=== PATIENT | female | born 1960 | race Caucasian/White ===

== ENCOUNTER → 2018-08-17 14:42 | Outpatient (CLI) | payer OTHER, SELFPAY ==
[2018-08-17 18:15] LABS: Free T3 3.2 pg/mL (2.18-3.98); Thyroid Stim Hormone (TSH) 0.45 uIU/mL (0.358-3.74)
== END ==
PROVIDERS: Family Provider Family Medicine; PCP Family Medicine; Visit Provider Family Medicine
DX: E03.9 Hypothyroidism, unspecified (principal)
CPT/HCPCS: 36415; 84436; 84443; 84481

== ENCOUNTER 2019-02-11 12:30 | Observation (INO) | payer OTHER, SELFPAY ==
[2018-11-25 15:03] VITALS: BMI 27.1
--- NOTE | 2019-02-05 06:30 | EKG12_ITS ---
Test Reason : PRE OP Blood Pressure : / mmHG Vent. Rate : 074 BPM Atrial Rate : 074 BPM P-R Int : 146 ms QRS Dur : 098 ms QT Int : 436 ms P-R-T Axes : 066 059 -20 degrees QTc Int : 483 ms Normal sinus rhythm Possible Left atrial enlargement Left ventricular hypertrophy with repolarization abnormality Prolonged QT Abnormal ECG Confirmed by GUILHERME SUAREZ, CAITLIN ([id number]), fashion editor LILA ASHER ([id number]) on 02/09/2019 1:39:09 PM Referred By: Khadijah Golden Confirmed By:CAITLIN VANEGAS MD
[2019-02-05 07:40] LABS: Hematocrit 41.5 % (37-47); Hemoglobin 13.4 g/dl (12.0-15.0); Mean Corp Hgb Conc 32.3 g/gl (32-36); Mean Corpuscular Hgb 29.7 pg (27.0-32.0); Mean Platelet Vol. 11.7 fl (6.2-12.0); Platelet Count 197 K/mm3 (150-450); RBC Distribution Width CV 12.7 % (11.6-14.6); RBC Distribution Width SD 41.6 fl (35.1-43.9); Red Blood Count 4.51 M/mm3 (4.2-5.4); White Blood Count 5.1 K/mm3 (4.4-11.0)
[2019-02-05 07:41] LABS: Scan Indicated on CBC? Y/N NO
[2019-02-05 08:04] LABS: Anion Gap 7 (5-15); BUN 9 mg/dL (7-18); Calcium,Total 9.1 mg/dL (8.5-10.1); Chloride 107 mmol/L (98-107); Creatinine, Serum 0.75 mg/dL (0.55-1.02); EST Glomerular Filtration Rate 84 mL/min (>60); Est Glom Filt Rate - Afr Amer 102 mL/min (>60); Glucose 75 mg/dL (74-106); Potassium 3.7 mmol/L (3.5-5.1); Sodium Level 143 mmol/L (136-145); Thyroid Stim Hormone (TSH) 0.96 uIU/mL (0.358-3.74)
--- NOTE | 2019-02-08 09:43 | PCM.HPOB.BLA ---
- Problem List (1) Incomplete uterovaginal prolapse Status: Chronic Comment: plan TVH BS combo case with urogyn. higgins consult History and Physical Date of Admission: 02/11/19 Vital Signs 01/20/19 Height 5 ft 7 in 01/20/19 Weight: 173 lb 8 oz 01/20/19 Body Mass Index (BMI) 27.1 01/20/19 Blood Pressure 124/76 H Intake Visit Reasons: TVH BS/O? ERAS Chief Complaint: TVH BS/O? ERAS Tier And Detonator Required: No Is patient in pain?: No Allergies penicillin G Allergy (Mild, Verified 11/25/18 15:05) Other Medications liothyronine 25 mcg tablet 25 mcg PO DAILY 11/25/18 [History Confirmed 11/25/18] multivitamin,gg-ufyb-cideqvnt tablet 1 tab PO DAILY 11/25/18 [History Confirmed 11/25/18] Is last menstrual period known: No Post menopausal: Yes Patient : No : No [facility] Medical History Thyroid disorder (Acute) Surgical History History of endometrial ablation (Acute) History of tonsillectomy (Acute) Hx of foot surgery (Acute) Social History Smoking Status: Never smoker alcohol intake: current details: social substance use type: does not use caffeine: Yes what type of physical activity do you participate in: walking seatbelt use: always do you feel safe at home: Yes additional social history: Xu LOVE TVH BS/O? ERAS: Details: ALINA LOPEZ is a 58 year old who presents for preop appointment.she is having prolapse symptoms. Female Reproductive History Menopausal Symptoms: No night sweats Pregancy History 4 Elective abortions Hx Para 3 Spontaneous abortions Hx # Term Pregnancies Ectopic pregnancies Hx # Pregnancies Multiple births # of living children Past Pregnancies Del. Date Name GA/Weeks Outcome Route Bth Weight Gen Labor Lgth Anesthesia Del Locatn Provider FOB Unknown 1985 Ana M Unknown 1987 Tre Unknown 1990 Jose Gracia Constitutional: Denies fatigue, night sweats, weight gain or weight loss ENT ENT: Reports system reviewed and no additional complaints, except as docu Cardio Card: Denies chest pain Resp Resp: Denies cough or dyspnea GI GI: Reports as per HPI; denies abdominal pain, constipation, nausea or vomiting : Denies nipple discharge, urinary frequency, urinary incontinence, urinary hesitancy, urinary urgency, vaginal discharge, vaginal dryness, vaginal odor or vaginal itching Musc Musc: Denies joint pain, back pain or muscle weakness Skin Skin/Breast: Denies hair loss, change in hair, dry skin, breast lump, breast pain, breast skin changes or nipple discharge Neuro Neuro: Reports system reviewed and no additional complaints, except as docu Psych Psych: Reports system reviewed and no additional complaints, except as docu Endo Endo: Denies cold intolerance, excessive sweating, heat intolerance or increased thirst Dimas/Lymph Hematologic/Lymphatic: Denies easy bleeding, Denies easy bruising, Denies enlarged lymph nodes Exam Const General: cooperative, healthy appearing, comfortable, no acute distress, well developed Orientation: alert [facility] Head: normal to inspection, normocephalic Ears: hearing grossly normal bilaterally, external ears normal Nose: external nose normal, nares normal Face and sinus: normal facial exam Neck Neck: normal visual inspection, no lymphadenopathy Thyroid: thyroid normal Chest Chest palpation & inspection: normal inspection of the chest Resp Effort & Inspection: normal respiratory effort Cardio Rate: regular rate Rhythm: regular rhythm GI Inspection: normal to inspection, non-distended Palpation: soft, no hepatosplenomegaly Musc Other: gross motor intact no deficits, full bilateral strength Skin General: no rashes or lesions noted Neuro General: alert, awake, moves all extremities, no focal motor deficits Motor: muscle tone normal throughout Extrem General: normal to inspection, no pedal edema Psych Appearance: grossly normal Mental Status: mental status grossly normal Affect: normal affect Speech and Movement: speech and movement normal Assessment & Plan Problems 1. Incomplete uterovaginal prolapse N81.2 plan TVH BS combo case with urogyn. higgins consult Plan plan TVH BS. discussed surgical risks including risks of anesthesia, infection, bleeding, injury to bowel, bladder or blood vessels, and patient wishes to proceed with surgery. Coding Level of Care Code No Charge Diagnoses Incomplete uterovaginal prolapse N81.2 UPDATE- I have seen the patient and performed any clinically relevant updates to the history and physical exam. Khadijah Golden MD
[2019-02-10 13:01] VITALS: BMI 26.3
[2019-02-11] VITALS (19 sets, daily range): BP systolic 90–132; BP diastolic 43–73; PULSE 55–73; RESP 14–18; TEMP 36.3–37; O2SAT 93–100; BMI 25.9
[2019-02-11] MEDS: Celecoxib 200 MG Capsule 400 MG PO (06:14)
[2019-02-11] MEDS: Phenazopyridine 95 MG Tablet 190 MG PO (06:15)
[2019-02-11] MEDS: Enoxaparin 40 MG/0.4 ML Syringe SC (06:18)
[2019-02-11] MEDS: Lactated Ringers 1,000 ML 40 ML IV (06:38)
[2019-02-11 06:40] LABS: Bedside Glucose 78 mg/dL (70-110)
[2019-02-11] MEDS: Magnesium Sulfate 4gm/100mL 4 GM/100 ML IV.SOLN. IV (06:46)
[2019-02-11] MEDS: Ciprofloxacin 400 MG/200 ML BAG 200 MG IV (06:48)
[2019-02-11] MEDS: Gabapentin 600 MG Tablet PO (06:48)
[2019-02-11] MEDS: Scopolamine 1mg/72hr Patch 1 PATCH TRANSDERM. (06:49)
[2019-02-11] MEDS: Acetaminophen 500 MG Tablet 1000 MG PO ×3 (06:49→21:00)
--- NOTE | 2019-02-11 07:30 | HYST_PTH ---
PATIENT: ALINA LOPEZ LOC: MS3 U#:[id number] AGE/SX: 58/F ROOM: MS311 RE02/11/[address]: Dr. Khadijah Golden MD : 1960 BED: 1 DIS: 02/12/2019 SPEC #: [id number] RECD: 02/11/19 10:43 STATUS: VALERIA MACKEY #: [id number] RIANNA: 02/11/19 07:[address]: Khadijah Golden DEPT: SURGICAL PATHOLOGY RECD BY: Armen Pate ENTERED: 02/11/19 11:18 SP TYPE: HYSTERECT OTHR DR: MD Dr. Russell Carvalho MD Tissues: Uterus, NOS Procedures: Surgery Specimen Level V HEADER OPERATION: ERAS, vaginal hysterectomy, bilateral salpingo-oophorectomy PRE-OP DIAGNOSIS: Incomplete uterovaginal prolapse TISSUE SUBMITTED: Uterus, cervix, bilateral fallopian tubes and ovaries MICROSCOPIC DIAGNOSIS Uterus, cervix, bilateral fallopian tubes and ovaries, vaginal hysterectomy and bilateral salpingo-oophorectomy: Cervix - no pathologic diagnosis. Endometrium - focal area of weakly proliferative endometrium. See comment. Myometrium - focal superficial adenomyosis. Bilateral fallopian tubes - no pathologic diagnosis. Bilateral ovaries - mesothelial inclusion cysts. Vaginal mucosal tissue - fragments of squamous mucosa, no pathologic diagnosis. SJ:weston 02/12/19 COMMENT No obvious endometrial tissue is identified. It shows focal fibrosis. As per patient's EMR, the patient has history of endometrial ablation. MICROSCOPIC DESCRIPTION Slides are reviewed. GROSS DESCRIPTION Received in fixative is one container labeled with the patient's name and designated uterus, cervix, bilateral fallopian tubes and ovaries. The specimen consists of a uterus with attached cervix, separate bilateral ovaries, fallopian tubes and separate segments of mucosal tissue. The uterus with attached cervix measures 6 cm in length x 4.1 cm in width x 2.5 cm in AP dimension and weighs 38.1 gm. The serosal surface of the uterus is dumont-pink and smooth. Grossly, no significant adhesion is found. The attached cervix measures 2.5 cm in length x 3.6 cm in diameter. The exocervical mucosa is dumont and smooth. The cervical os is patulous and measures 1.2 cm in diameter. The uterus is opened to reveal a stenotic endocervical canal. Grossly, no obvious endometrial cavity is identified. Sections through the myometrium demonstrate cut surfaces which are dumont-pink and homogenous and measures 1 cm in thickness. The first ovary measures 2.5 x 1.4 x 0.8 cm. The serosal surface is dumont-yellow and slightly wrinkled. Sections through ovary demonstrate a 0.5 cm clear fluid filled subserosal cyst. The attached segment of fallopian tube measures 1.4 cm in length x 0.5 cm in diameter. The serosal surface is dumont-pink and smooth. A fimbriated end is present. Cross-sections demonstrate a pinpoint lumen. The contralateral ovary measures 3 x 1.1 x 0.6 cm. The serosal surface is dumont-yellow and slightly wrinkled. Cross-sections through the ovary demonstrate cut surfaces which are dumont-pink with three minute clear fluid filled cysts. The attached fallopian tube measures 3 cm in length x 0.5 cm in diameter. The serosal surface is dumont-pink and smooth. A fimbriated end is present. Cross-sections through the fallopian tube demonstrate a pinpoint lumen. Continuous Miner sections are submitted as follows: 1 - anterior cervix, 2 - posterior cervix, 3 & 4 - anterior endomyometrium, 5 & 6 - posterior endomyometrium, 7 - first ovary, 8 - first fallopian tube, 9 - contralateral ovary, 10 - contralateral fallopian tube, 11 - separate fragments of mucosal tissue. / CE:weston 02/11/19 TC:5 CPT: 59538
[2019-02-11] MEDS: Vasopressin 20 UNITS/ML Vial (07:55)
[2019-02-11] MEDS: Estrogens,Conj. 1 Tube 1 DOSE (09:51)
--- NOTE | 2019-02-11 09:57 | OP.PCM_ITS ---
Problem List (1) Incomplete uterovaginal prolapse Status: Chronic Comment: plan TVH BS combo case with urogyn. david consult Report of Operation Date of Procedure: 02/11/19 Pre-Operative Diagnosis: uterine prolapse Post-Operative Diagnosis: same plus bilateral cystic ovaries Surgery/Procedure Performed:: tvhbso Description of Surgical Findings:: cystic bilateral ovaries small normal uterus carbon furnace operator helper: Wendy Kohler carbon furnace operator helper: Lauren David Type of Anesthesia:: General Special Medications: none Specimen's removed: uterus tubes ovaries Drains: campuzano Estimated Blood Loss (mL): 200 Fluids Replaced: crystalloid Description of Procedure: Patient was taken to the operating room and was placed under general anesthesia was prepped and draped in normal sterile fashion in the dorsal lithotomy position. Preoperative antibiotics and SCDs and Campuzano catheter was placed inside the bladder. Weighted speculum was placed in the vagina and the anterior and posterior lip of the cervix was grasped with 2 Hever clamps and circumferentially injected with dilute vasopressin. A circumferential incision was made with a scalpel and the posterior cul-de-sac was entered into sharply and a longneck speculum was placed. The anterior cul-de-sac was also dissected down and entered into sharply and the uterosacral ligaments were clamped cut and suture ligated bilaterally followed by the cardinal ligaments which were Clamped cut and suture ligated bilaterally with 0 Monocryl. The uterus serially descended and progressive bites were taken bilaterally up to the level of the utero-ovarian ligament bilaterally which was clamped transected and double ligated with 0 Monocryl suture and 0 Vicryl free tie. Bilateral fallopian tubes and ovaries were well visualized and noted be within normal limits and they were transected across the base with a Daniel clamp and removed and sutured with 0 Vicryl suture and a free tie of the same. Excellent hemostasis was noted. The vagina was closed with [id number] 0 Vicryl pop offs including the posterior and anterior peritoneum in the reapproximation. Excellent hemostasis was noted. The next portion of the procedure was then started by Dr. David please see her dictation for additional information Grafts/Implants Used: see urogyn note - Complications none
--- NOTE | 2019-02-11 10:06 | PCM.OPRPT ---
Problem List (1) Stress incontinence Status: Acute (2) Cystocele and rectocele with incomplete uterovaginal prolapse Status: Acute Report of Operation Date of Procedure: 02/11/19 Pre-Operative Diagnosis: cystocele, rectocele, incomplete uterovaginal prolapse with stress incontinence. Post-Operative Diagnosis: same Surgery/Procedure Performed:: anterior and posterior repair, right sacrospinous ligament fixation, midurethral sling, cystoscopy Description of Surgical Findings:: no complications, bilateral ureters evaluated with good jet on the right and intubated with whistle tip on the left without obstruction or blood. driver's education instructor: None - Type of Anesthesia:: General Estimated Blood Loss (mL): 25cc Description of Procedure: The patient is a 58-year-old female with incomplete uterovaginal prolapse, cystocele, rectocele and stress incontinence. She presents the office and was evaluated with urodynamics, cystoscopy. Informed consent was obtained. Please see the consent for full details. She was taken to the operating room and placed on the operating room table. Anesthesia monitored the head, neck, airway, IV access and vital signs throughout the case. Once anesthesia was appropriately administered the patient was prepped and draped in usual sterile fashion. She was placed into exaggerated dorsal lithotomy and Trendelenburg position. Dr. Golden proceeded first with a hysterectomy and removal of the ovaries. She close the vaginal cuff and the case was turned over to wi. The anterior vaginal wall was injected submucosally for hydrostatic dissection and hemostatic control. A midline incision was made in both sharp and blunt dissection ensued until the pubocervical fascia was identified bilaterally. This is brought together in interrupted fashion with 2-0 Vicryl in a 2 layer repair. The vaginal mucosa was closed using 2-0 Vicryl in running interlocking fashion. Attention was turned towards the posterior defect. Dissection was performed in the same way as the anterior repair with submucosal injection followed by incision, blunt and sharp dissection. However, the dissection continued until the ischial spine was identified and the sacral spinous ligament was freed from surrounding tissues. The Capio suturing device was used to pass an Ethibond suture through the ligament and through full-thickness posterior vaginal wall at the area of the apex. A free needle was used for this. The rectovaginal fascia was then brought together and 2 layer closure trying to avoid tension on the repair. This was done with interrupted 2-0 Vicryl. Following the repair the vaginal incision was closed with running interlocking 2-0 Vicryl. A perineoplasty was also performed using 2-0 Vicryl and an adequate vaginal introitus was instructed. At this time the mid urethra was injected submucosally, and a midline incision was made, and blunt and sharp dissection was performed on either side of the urethra. The alters mid urethral sling was then placed first on the patient's right side than on the left and was tensioned using the tensioning suture. There was no tension against the urethra with the mesh and it lay in a flat nature. Positioning was performed using a right angle clamp. The midline incision was closed using running interlocking 2-0 Vicryl. At this time a cystourethroscopy was performed after the patient had been given intravenous methylene blue. Blue ureteral jet was seen easily from the patient's right side. The patient did not have much urine output and was dry. On the patient's left side a 5 Moroccan whistle-tip catheter was inserted without difficulty all the way up to 24 cm. There was no obstruction and no blood. Upon removal there was only a few drops of urine that came with the catheter. At this time the Crespo catheter was replaced into the urinary bladder. The vagina was packed using estrogen cream and vaginal packing. She was awakened and taken to the recovery room in good condition. There were no complications during the procedure. Please note that this was dictated using [email or web address] dictation software. It may contain incorrect words, spelling and punctuation that were not noted prior to signing the document. Grafts/Implants Used: Altis midurethral sling - Complications none - Admit VTE Documentation VTE Present on Admission: Yes VTE Mechan Device Prophylaxis: SCD's VTE Pharm Prophylaxis ordered?: Yes
[2019-02-11] MEDS: Ondansetron 4 MG/2 ML Vial IV ×2 (10:10→17:30)
[2019-02-11] MEDS: Ketorolac 30 MG/ML Syringe IV ×2 (11:16→18:25)
[2019-02-11] MEDS: Lactated Ringers 1,000 ML 70 ML IV ×2 (11:45→18:51)
[2019-02-11] MEDS: oxyCODONE 5 MG Tablet PO ×2 (12:57→17:05)
[2019-02-11] MEDS: Smz/Tmp Ds Tablet 1 TABLET PO (17:06)
[2019-02-11] MEDS: 0.9% NaCl Peripheral Flush Adult/Peds IV ×2 (17:31→18:25)
[2019-02-11] MEDS: Docusate Sodium 100 MG Capsule PO (21:01)
[2019-02-12] MEDS: Ketorolac 30 MG/ML Syringe IV ×3 (00:11→12:18)
[2019-02-12 02:07] VITALS: BP 95/52; PULSE 64; RESP 16; TEMP 36.4; O2SAT 98
[2019-02-12] MEDS: Acetaminophen 500 MG Tablet 1000 MG PO ×2 (05:53→12:18)
[2019-02-12 06:39] LABS: Hematocrit 36.2 % (37-47); Hemoglobin 11.7 g/dl (12.0-15.0); Mean Corp Hgb Conc 32.3 g/gl (32-36); Mean Corpuscular Hgb 29.6 pg (27.0-32.0); Mean Corpuscular Volume 91.6 fL (81-99); Mean Platelet Vol. 11.6 fl (6.2-12.0); Platelet Count 173 K/mm3 (150-450); RBC Distribution Width CV 12.7 % (11.6-14.6); RBC Distribution Width SD 41.7 fl (35.1-43.9); Red Blood Count 3.95 M/mm3 (4.2-5.4); White Blood Count 11.6 K/mm3 (4.4-11.0)
[2019-02-12 06:41] LABS: Scan Indicated on CBC? Y/N NO
[2019-02-12 07:33] VITALS: O2SAT 96
[2019-02-12 09:26] VITALS: BP 97/53; PULSE 70; RESP 16; TEMP 36.9; O2SAT 97
[2019-02-12] MEDS: Smz/Tmp Ds Tablet 1 TABLET PO (09:28)
[2019-02-12] MEDS: Docusate Sodium 100 MG Capsule PO (09:28)
[2019-02-12] MEDS: Enoxaparin 40 MG/0.4 ML Syringe SC (09:28)
[2019-02-12] MEDS: Lactated Ringers 1,000 ML 70 ML IV (09:29)
[2019-02-12 12:16] VITALS: BP 101/58; PULSE 65; RESP 18; TEMP 36.8; O2SAT 98
[2019-02-12] MEDS: 0.9% NaCl Peripheral Flush Adult/Peds IV (12:18)
--- NOTE | 2019-02-12 12:54 | PCM.PN.GU ---
Physical Exam Subjective: Up in bed, eating lunch. Still uncomfortable as the campuzano catheter and packing have not yet been removed. Otherwise, no nausea, vomiting. Would like to go home. - Physical Exam Vital Signs Temp 98.3 F 02/12/19 12:16 Pulse 65 02/12/19 12:16 Resp 18 02/12/19 12:16 BP 101/58 L 02/12/19 12:16 Pulse Ox 98 02/12/19 12:16 Intake & Output 02/10/19 02/11/19 02/12/19 23:59 23:59 23:59 Intake Total 3193 / 3193 2246 / 2246 Output Total 550 / 550 4225 / 4225 Balance 2643 / 2643 -1978 / Weight: 75.2 kg Intake: Oral 375 / 375 1400 / 1400 IV fluid/meds 2818 / 2818 846 / 846 IV #3 2500 / 2500 Output: Urine 550 / 550 4225 / 4225 General: Alert, Oriented x3, No apparent distress HEENT: Atraumatic, Normocephalic Oral: Moist Mucosa Neck: Supple, Trachea Midline Lungs: Normal air movement Cardiovascular: Regular rate Abdomen: Soft Rectal: Exam deferred Neurological: Cranial nerves II-XII grossly intact Psych/Mental Status: Normal Affect Laboratory Tests Past 24 Hrs 02/12/19 06:20 WBC 11.6 H RBC 3.95 L Hgb 11.7 L Hct 36.2 L MCV 91.6 MCH 29.6 MCHC 32.3 RDW 12.7 RDW Differential 41.7 Plt Count 173 MPV 11.6 Medical Necessity - Tobacco Use Smoking Status: Never smoker Tobacco Use: Non-smoker Assessment/Plan All Active Problems (Last Reviewed 02/10/19 @ 13:47 by Oswaldo Wilkinson MD) Stress incontinence (Acute) Cystocele and rectocele with incomplete uterovaginal prolapse (Acute) Encounter for pre-operative cardiovascular clearance (Acute) Abnormal EKG (Acute) Post Op Day # 1 await trial of void. home later today.
--- NOTE | 2019-02-12 12:55 | PCM.DC.URO ---
Discharge Diet: No Restrictions Discharge Activity: May Not Drive - no driving for 2 weeks. No lifting over 5 pounds. No exercise or strenuous activity. No sexual intercourse. No tub bathing, ok to shower. No swimming or hot tubs. No vacuuming. Call your doctor if you observe: Fever of 101 or Higher, Inability to urinate, Inability to have a bowel movement, Shortness of breath, Chest pain, Calf discomfort, Uncontrolled pain Additional Dressing/Incision Instructions:: vaginal spotting is expected. Call if there is filling a pad in less than an hour. Call with concerns. Allergies/Adverse Reactions: Allergies Penicillins Allergy (Verified 02/10/19 13:04) Hives gluten Adverse Reaction (Verified 02/10/19 13:04) cramping and stomach upset Medications to take at Discharge liothyronine 25 mcg tablet 25 mcg PO BID 11/25/18 Orders to be completed after discharge: Type & Screen Time Frame: 02/04/19, Facility: [facility], Location: Laboratory 12 Lead EKG [CVS] Time Frame: 02/04/19, Facility: [facility], Location: Cardiovascular Services Basic Metabolic Profile (BMP) Time Frame: 02/04/19, Location: Laboratory CBC-Complete Blood Cnt No Diff Time Frame: 02/04/19, Location: Laboratory Thyroid Stim Hormone (TSH) Time Frame: 02/04/19, Location: Laboratory Primary Care Physician: Russell Rojsa MD [Primary Care Provider] - Test Results: Test results from this visit will be discussed in further detail at your follow-up appointment, if applicable. Please Follow Up With: Lauren David MD When: call for appt. Proposed Discharge Date: 02/12/19
--- NOTE | 2019-02-12 12:58 | DCINST_ITS ---
Discharge Diet: No Restrictions Discharge Activity: May Not Drive - no driving for 2 weeks. No lifting over 5 pounds. No exercise or strenuous activity. No sexual intercourse. No tub bathing, ok to shower. No swimming or hot tubs. No vacuuming. Call your doctor if you observe: Fever of 101 or Higher, Inability to urinate, Inability to have a bowel movement, Shortness of breath, Chest pain, Calf discomfort, Uncontrolled pain Additional Dressing/Incision Instructions:: vaginal spotting is expected. Call if there is filling a pad in less than an hour. Call with concerns. Allergies/Adverse Reactions: Allergies Penicillins Allergy (Verified 02/10/19 13:04) Hives gluten Adverse Reaction (Verified 02/10/19 13:04) cramping and stomach upset Medications to take at Discharge liothyronine 25 mcg tablet 25 mcg PO BID 11/25/18 Orders to be completed after discharge: Type & Screen Time Frame: 02/04/19, Facility: [facility], Location: Laboratory 12 Lead EKG [CVS] Time Frame: 02/04/19, Facility: [facility], Location: Cardiovascular Services Basic Metabolic Profile (BMP) Time Frame: 02/04/19, Location: Laboratory CBC-Complete Blood Cnt No Diff Time Frame: 02/04/19, Location: Laboratory Thyroid Stim Hormone (TSH) Time Frame: 02/04/19, Location: Laboratory Primary Care Physician: Russell Rojas MD [Primary Care Provider] - Test Results: Test results from this visit will be discussed in further detail at your follow- up appointment, if applicable. Please Follow Up With: Lauren David MD When: call for appt. Proposed Discharge Date: 02/12/19
--- NOTE | 2019-02-12 13:19 | PCM.PN.OB ---
Patient Problems: Active and Suspected Problems (Last Reviewed 02/10/19 @ 13:47 by Oswaldo Wilkinson MD) Stress incontinence (Acute) Cystocele and rectocele with incomplete uterovaginal prolapse (Acute) Encounter for pre-operative cardiovascular clearance (Acute) Abnormal EKG (Acute) Subjective: doing well pain controlled tolerating po - Physical Exam General: Alert, Oriented x3 Vital Signs Temp Pulse Resp BP Pulse Ox 98.3 F 65 18 101/58 L 98 02/12/19 12:16 02/12/19 12:16 02/12/19 12:16 02/12/19 12:16 02/12/19 12:16 Oxygen Flow Rate (L/min) 6 Oxygen Delivery Method Room Air Weight: 165 lb 12.602 oz Body Mass Index (BMI) 25.9 Intake and Output for Last 24 Hours 02/10/19 02/11/19 02/12/19 23:59 23:59 23:59 Intake Total 3193 / 3193 2246 / 2246 Output Total 550 / 550 4875 / 4875 Balance 2643 / 2643 -2629 / -2629 Laboratory Tests Past 24 Hrs 02/12/19 06:20 WBC 11.6 H RBC 3.95 L Hgb 11.7 L Hct 36.2 L MCV 91.6 MCH 29.6 MCHC 32.3 RDW 12.7 RDW Differential 41.7 Plt Count 173 MPV 11.6 Medical Necessity - Tobacco Use Smoking Status: Never smoker Tobacco Use: Non-smoker Assessment/Plan All Active Problems (Last Reviewed 02/10/19 @ 13:47 by Oswaldo Wilkinson MD) Stress incontinence (Acute) Cystocele and rectocele with incomplete uterovaginal prolapse (Acute) Encounter for pre-operative cardiovascular clearance (Acute) Abnormal EKG (Acute) s/p TVH pelvic floor reconstruction pod 1 routine postop care ambulate dc campuzano and check PVR dc home
[2019-02-12 14:00] VITALS: BP 94/50; PULSE 65; RESP 16; TEMP 36.8; O2SAT 99
== END 2019-02-12 16:19 | disposition home or self-care (01) ==
LOC: SDC 13:51
PROVIDERS: Urology; Admitting Provider Obstetrics & Gynecology; Family Provider Family Medicine; PCP Family Medicine; Referring Provider Obstetrics & Gynecology; Visit Provider Obstetrics & Gynecology
PROC: (CPT 58260; principal; 2019-02-11 07:10)
PROC: (CPT 57260; 2019-02-11 07:10)
DX: N81.2 Incomplete uterovaginal prolapse (principal); N83.292 Other ovarian cyst, left side; N83.291 Other ovarian cyst, right side; N80.0 Endometriosis of uterus; N39.3 Stress incontinence (female) (male); R94.31 Abnormal electrocardiogram [ECG] [EKG]; E07.9 Disorder of thyroid, unspecified; Z79.899 Other long term (current) drug therapy
CPT/HCPCS: 57260; 57288; 58262; 36415; 80048; 82962; 84443; 85027; 86850; 86900; 88307; 93005; 96372; 96374; 96375; 96376; 99218; J7120; A4216; C1758; G0378; G0379; J0744; J2405; Q9968

== ENCOUNTER → 2019-03-17 08:54 | Outpatient (CLI) | payer OTHER, SELFPAY ==
[2019-02-11 12:44] VITALS: BMI 25.9
[2019-02-24 10:20] VITALS: BMI 25.9
--- NOTE | 2019-03-17 08:55 | ECHOD_ITS ---
Version 2 Reason For Study: ABN EKG Procedure This was a 2D Doppler, Color Flow transthoracic echocardiogram. Exam performed in department. Left Ventricle Normal left ventricle. Concentric left ventricular hypertrophy. Left ventricular systolic function is normal. The estimated ejection fraction is 60 %. Normal diastology for age. No regional wall motion abnormalities noted. Right Ventricle Normal RV size. Normal systolic function. Atria Normal left atrium. Normal right atrium. No doppler evidence for ASD. Mitral Valve There is no mitral valve stenosis. No mitral valve insufficiency. Tricuspid Valve There is no tricuspid stenosis. Trivial tricuspid valve insufficiency. Pulmonary artery systolic pressure is 25 mmHg. Aortic Valve Trisinus/trileaflet aortic valve. There is no aortic stenosis. Trivial aortic valve insufficiency. Pulmonic Valve There is no pulmonic valvular stenosis. No pulmonic valve insufficiency. Great Vessels Normal aortic root. Pericardium/Pleural No pericardial effusion. MMode/2D Measurements & Calculations LVIDd: 3.4 cm IVSd: 1.3 cm Ao root diam: 3.4 cm LVIDs: 1.8 cm LVPWd: 1.3 cm RVDd: 3.2 cm FS: 46.3 % LAV(MOD-bp): 60.1 ml LA A4 area: 15.3 cm2 LA dimension(2D): 3.2 cm LAV(MOD-bp) Indexed: 32.2 ml/m2 LAV(MOD-sp2): 66.7 ml LAV(MOD-sp4): 42.3 ml RA A4 area: 11.2 cm2 Time Measurements MV dec time: 0.27 sec Doppler Measurements & Calculations MV E max elio: 73.9 cm/sec Lat Peak E' Elio: 7.4 cm/sec Med Peak E' Elio: 5.7 cm/sec MV A max elio: 57.2 cm/sec E/E' lat: 10.0 E/E' med: 12.9 MV E/A: 1.3 Ao V2 max: 154.4 cm/sec LV V1 max: 140.5 cm/sec TR max elio: 227.9 cm/sec Ao max P.5 mmHg LV V1 max P.9 mmHg TR max P.8 mmHg Interpretation Summary Concentric left ventricular hypertrophy. Left ventricular systolic function is normal. The estimated ejection fraction is 60 %. Normal diastology for age. Trivial aortic valve insufficiency. Ordering Physician: Angela Wilkinson Referring Physician: SELENA FITZPATRICK Performed By: Angelika Arce RDCS, RVT
== END ==
PROVIDERS: Family Provider Family Medicine; PCP Family Medicine; Referring Provider Specialist; Visit Provider Specialist
DX: R94.31 Abnormal electrocardiogram [ECG] [EKG] (principal)
CPT/HCPCS: 93306

== ENCOUNTER 2019-08-03 10:47 | Day surgery (SDC) | payer OTHER, SELFPAY ==
[2019-05-17 15:01] VITALS: BMI 26.3
[2019-07-26 09:31] VITALS: BP 145/76; PULSE 72; RESP 16; TEMP 36.8; O2SAT 99; BMI 26.4
[2019-08-03 11:26] VITALS: BP 117/68; PULSE 72; RESP 16; TEMP 36.9; O2SAT 100; BMI 26.4
[2019-08-03] MEDS: Lactated Ringers 1,000 ML 100 ML IV (12:05)
--- NOTE | 2019-08-03 12:15 | LES_PTH ---
PATIENT: ALINA LOPEZ [place] [facility] [place][id number] AGE/SX: 58/F ROOM: RE08/03/[address]: Dr. Lauren David MD : 1960 BED: DIS: 08/03/2019 SPEC #: [id number] RECD: 08/04/19 16:03 STATUS: VALERIA NARENDRA #: [id number] RIANNA: 08/03/19 12:[address]: Lauren David DEPT: SURGICAL PATHOLOGY RECD BY: Armen Pate ENTERED: 08/05/19 08:55 SP TYPE: Lesion OTHR DR: Dr. Russell Ordoñez MD Tissues: Vagina, NOS Procedures: Surgery Specimen Level IV HEADER OPERATION: Vaginal lesion excision PRE-OP DIAGNOSIS: Abnormal uterine and vaginal bleeding; deep dyspareunia; postmenopausal atrophic vaginitis TISSUE SUBMITTED: Vaginal lesion MICROSCOPIC DIAGNOSIS Vaginal lesion, biopsy: Granulation with associated acute and chronic inflammation. Strips of benign superficial squamous mucosa. See comment. AM:weston 08/06/19 COMMENT Clinical correlation is suggested. Reference is made to the patient's hysterectomy from 02/12/19 ([id number]) in which superficial adenomyosis was identified. MICROSCOPIC DESCRIPTION Slides are reviewed. GROSS DESCRIPTION Received in fixative is one container labeled with the patient's name and designated vaginal lesion. The specimen consists of multiple irregular fragments of dumont tissue that in aggregate measure 1 x 0.7 x 0.2 cm. The specimen is totally submitted in one cassette. / AM:weston 08/05/19 TC:2 CPT: 10086
--- NOTE | 2019-08-03 12:54 | PCM.OPRPT ---
Problem List (1) Vaginal polyp Status: Acute Report of Operation Date of Procedure: 08/03/19 Pre-Operative Diagnosis: vaginal polyp Post-Operative Diagnosis: same Surgery/Procedure Performed:: excision vaginal polyp Description of Surgical Findings:: Inflammatory polyp approximately 1 cm in length Type of Anesthesia:: General Specimen's removed: vaginal polyp Description of Procedure: The patient is a 58-year-old female who had a pelvic floor reconstruction with hysterectomy in February 2019. She presented to the office with pain and bleeding with intercourse and bowel movements occasionally. On physical exam and inflammatory polyp was identified at the apex. An attempt was made to treat this conservatively with estrogen replacement. Upon return to the office, the polyp continued and actually enlarged. The discomfort increased as well and the decision was made to take the patient to the operating room for removal. Informed consent was obtained. The patient was taken to the operating room and placed on the operating room table. Anesthesia monitored the head, neck, airway, IV access and vital signs throughout the case. Once anesthesia was appropriately administered, the patient was placed into dorsal lithotomy in Trendelenburg position. She was prepped and draped in usual sterile fashion. The prep actually removed the polyp and the base was left. Using forceps the base was grasped and excised using a knife. One 3-0 Vicryl [id number] suture closed the base in teeth hemostasis was obtained. There is no deep involvement of the polyp and there is no recurrence of vaginal vault prolapse. Premarin cream was then applied to the area. The patient was awakened taken to the recovery room in good condition. There were no complications during the procedure. Grafts/Implants Used: none - Complications none - Admit VTE Documentation VTE Present on Admission: Yes VTE Mechan Device Prophylaxis: SCD's VTE Pharm Prophylaxis ordered?: No Reason prophylaxis not ordered:: Treatment Not Indicated
--- NOTE | 2019-08-03 12:59 | DCINST_ITS ---
Discharge Diet: No Restrictions Discharge Activity: Return to Normal Activity, May not drive while taking narcotic pain medications. May resume sexual activity in: 4 weeks Call your doctor if your incision/area has: Continuous Slow Oozing, Sudden Increased Bleeding, Foul Smelling Discharge Call your doctor if you observe: Fever of 101 or Higher, Inability to urinate, Shortness of breath, Chest pain, Calf discomfort, Uncontrolled pain Allergies/Adverse Reactions: Allergies Penicillins Allergy (Verified 08/03/19 11:24) Hives gluten Adverse Reaction (Verified 08/03/19 11:24) cramping and stomach upset Medications to take at Discharge liothyronine 25 mcg tablet 25 mcg PO BID 11/25/18 ibuprofen 200 mg tablet 200 mg PO Q6H PRN 05/17/19 magnesium oxide 400 mg (241.3 mg magnesium) tablet 400 mg PO DAILY PRN PRN tab 05/17/19 Primary Care Physician: Russell Ordoñez MD [Primary Care Provider] - Test Results: Test results from this visit will be discussed in further detail at your follow- up appointment, if applicable. Please Follow Up With: Lauren David MD When: 1 week, call for appt Proposed Discharge Date: 08/03/19
[2019-08-03] MEDS: Ciprofloxacin 400 MG/200 ML BAG 200 MG IV (13:05)
[2019-08-03] MEDS: Estrogens,Conj. 1 Tube VAGINAL (13:38)
[2019-08-03 13:48] VITALS: BP 117/68; BP 136/66; PULSE 82; RESP 16; TEMP 36.3; O2SAT 94
[2019-08-03 14:00] VITALS: BP 112/73; BP 117/68; PULSE 72; RESP 16; O2SAT 93
[2019-08-03 14:14] VITALS: BP 117/68; BP 119/64; PULSE 70; RESP 16; O2SAT 94
[2019-08-03 14:16] VITALS: BP 117/68; BP 119/64; PULSE 76; RESP 16; TEMP 36.3; O2SAT 96
[2019-08-03 15:30] VITALS: BP 117/68; BP 121/69; PULSE 66; RESP 16; TEMP 36.7; O2SAT 99
== END 2019-08-03 15:34 | disposition home or self-care (01) ==
LOC: SDC 10:47 → AC 10:48
PROVIDERS: Family Provider Family Medicine; PCP Family Medicine; Referring Provider Urology; Visit Provider Urology
PROC: (CPT 57135; principal; 2019-08-03 12:05)
DX: N84.2 Polyp of vagina (principal); E03.9 Hypothyroidism, unspecified; N93.8 Other specified abnormal uterine and vaginal bleeding; N94.12 Deep dyspareunia; N95.2 Postmenopausal atrophic vaginitis
CPT/HCPCS: 57135; 88305; J7120; J0744; J2405

== ENCOUNTER → 2020-04-20 06:33 | Outpatient (CLI) | payer OTHER, SELFPAY ==
[2019-08-17 15:07] VITALS: BMI 27.7
[2020-04-20 06:59] LABS: Absolute Lymphocyte Count 1.65 X10^3/uL (0.83-4.51); Absolute Neutrophil Count 3.7 X10^3/uL (2.0-7.7); Basophil# 0.03 X10^3/uL; Basophil% 0.5 % (0-1); Eosinophils% 4.8 % (0-5); Hematocrit 40.8 % (37-47); Hemoglobin 13.2 g/dL (12.0-15.0); Lymphocyte # 1.65 X10^3/ul (4.0); Lymphocyte % 26.4 % (19-41); Mean Corp Hgb Conc 32.4 g/dL (32-36); Mean Corpuscular Hgb 29.9 pg (27.0-32.0); Mean Corpuscular Volume 92.3 fL (81-99); Mean Platelet Vol. 11.1 fl (6.2-12.0); Monocyte% 9.6 % (0-10); NRBC Flagged by Analyzer 0 % (0-5); Neutrophil # 3.67 X10^3/uL (2.7-7.7); Neutrophil % 58.5 % (47-70); Platelet Count 225 K/mm3 (150-450); RBC Distribution Width CV 12.5 % (11.6-14.6); RBC Distribution Width SD 42.4 fl (35.1-43.9); Red Blood Count 4.42 M/mm3 (4.2-5.4); White Blood Count 6.3 K/mm3 (4.4-11.0)
[2020-04-20 07:41] LABS: Homocysteine 6.2 umol/L (3.2-10.7)
[2020-04-20 07:50] LABS: Hemoglobin A1c 5.3 % (3.8-5.6)
[2020-04-20 08:06] LABS: BUN 16 mg/dL (7-18); Creatinine, Serum 0.71 mg/dL (0.55-1.02); Glucose 96 mg/dL (74-106)
[2020-04-20 08:07] LABS: AST(SGOT) 27 U/L (15-37); Alanine Aminotransfer ALT/SGPT 31 U/L (13-56); Albumin, Serum 3.9 g/dL (3.2-5.0); Alkaline Phosphatase 82 U/L (45-117); Anion Gap 3 (5-15); BUN/Creat Ratio 22.4 RATIO (10-20); CRP < 2.90 mg/L (0.0-3.0); Calcium,Total 8.9 mg/dL (8.5-10.1); Chloride 108 mmol/L (98-107); Cholesterol 174 mg/dL (200); EST Glomerular Filtration Rate 88 mL/min (>60); Est Glom Filt Rate - Afr Amer 107 mL/min (>60); Ferritin 55 ng/mL (8-252); Free T3 2.7 pg/mL (2.18-3.98); Globulin 3.8 g/dL (2.2-4.2); High Density Lipoprotein 85 mg/dL; Iron 74 ug/dL (50-170); Iron Binding Capacity,Total 283 ug/dL (250-450); PERCENT IRON SATURATION 26.1 % (15.0-55.0); Potassium 3.9 mmol/L (3.5-5.1); Protein, Total 7.7 g/dL (6.4-8.2); Sodium Level 141 mmol/L (136-145); T4 Free Direct 0.26 ng/dL (0.76-1.46); Thyroid Stim Hormone (TSH) 1.97 uIU/mL (0.358-3.74); Triglycerides 55 mg/dL; Very Low Density Lipoprotein 11 mg/dL (5-40)
[2020-04-21 14:08] LABS: Thyroid Peroxidase AB 27 IU/mL (0-34)
[2020-04-21 14:21] LABS: Thyroglobulin Antibody < 1.0 IU/mL (0.0-0.9)
== END ==
PROVIDERS: PCP Family Medicine; Referring Provider Nurse Practitioner Women's Health; Visit Provider Nurse Practitioner Women's Health
DX: R53.83 Other fatigue (principal); I35.1 Nonrheumatic aortic (valve) insufficiency; I51.7 Cardiomegaly
CPT/HCPCS: 36415; 80053; 80061; 82306; 82728; 83036; 83090; 83540; 83550; 84439; 84443; 84481; 85025; 86140; 86376; 86800

== ENCOUNTER → 2020-11-28 16:32 | Outpatient (CLI) | payer OTHER, SELFPAY ==
[2020-11-28 16:58] LABS: Hematocrit 41.2 % (37-47); Hemoglobin 13.1 g/dL (12.0-15.0); Mean Corp Hgb Conc 31.8 g/dL (32-36); Mean Corpuscular Hgb 30.5 pg (27.0-32.0); Mean Corpuscular Volume 95.8 fL (81-99); Platelet Count 222 K/mm3 (150-450); RBC Distribution Width CV 13.2 % (11.6-14.6); White Blood Count 6.8 K/mm3 (4.4-11.0)
[2020-11-28 17:58] LABS: ALB/GLOB Ratio 1.2 RATIO (0.9-2.4); AST(SGOT) 27 U/L (15-37); Alanine Aminotransfer ALT/SGPT 33 U/L (13-56); Alkaline Phosphatase 104 U/L (45-117); Anion Gap 5 (5-15); BUN 20 mg/dL (7-18); BUN/Creat Ratio 28.5 RATIO (10-20); Calcium,Total 8.8 mg/dL (8.5-10.1); Chloride 106 mmol/L (98-107); EST Glomerular Filtration Rate 90 mL/min (>60); Est Glom Filt Rate - Afr Amer 109 mL/min (>60); Globulin 3.4 g/dL (2.2-4.2); Glucose 86 mg/dL (74-106); Potassium 3.7 mmol/L (3.5-5.1); Protein, Total 7.4 g/dL (6.4-8.2); Sodium Level 141 mmol/L (136-145); Thyroid Stim Hormone (TSH) 0.78 uIU/mL (0.358-3.74)
== END ==
PROVIDERS: PCP Family Medicine; Referring Provider Family Medicine; Visit Provider Family Medicine
DX: E03.9 Hypothyroidism, unspecified (principal)
CPT/HCPCS: 36415; 80053; 84443; 85027

== ENCOUNTER → 2021-09-11 14:21 | Outpatient (CLI) | payer OTHER, SELFPAY ==
[2021-09-11 18:52] LABS: ALB/GLOB Ratio 1.2 RATIO (0.9-2.4); AST(SGOT) 28 U/L (15-37); Alanine Aminotransfer ALT/SGPT 35 U/L (13-56); Albumin, Serum 4.1 g/dL (3.2-5.0); Alkaline Phosphatase 102 U/L (45-117); Anion Gap 9 (5-15); BUN 15 mg/dL (7-18); BUN/Creat Ratio 21.9 RATIO (10-20); Calcium,Total 9.1 mg/dL (8.5-10.1); Chloride 104 mmol/L (98-107); Cholesterol 177 mg/dL (200); Creatinine, Serum 0.68 mg/dL (0.55-1.02); EST Glomerular Filtration Rate 92 mL/min (>60); Est Glom Filt Rate - Afr Amer 112 mL/min (>60); Globulin 3.4 g/dL (2.2-4.2); Glucose 87 mg/dL (74-106); High Density Lipoprotein 77 mg/dL; Protein, Total 7.5 g/dL (6.4-8.2); Sodium Level 141 mmol/L (136-145); Triglycerides 110 mg/dL; Very Low Density Lipoprotein 22 mg/dL (5-40)
== END ==
PROVIDERS: PCP Family Medicine; Referring Provider Family Medicine; Visit Provider Family Medicine
DX: Z13.220 Encounter for screening for lipoid disorders (principal); E03.9 Hypothyroidism, unspecified
CPT/HCPCS: 36415; 80053; 80061; 84443

== ENCOUNTER → 2021-09-20 09:55 | Outpatient (CLI) | payer OTHER, SELFPAY ==
[2021-09-20 12:47] LABS: T4 Free Direct 0.19 ng/dL (0.76-1.46)
[2021-09-20 12:51] LABS: T3 Total - Triiodothyronine 2.11 ng/mL (0.6-1.81); Vitamin D,25 Hydroxy 39.8 ng/mL
[2021-09-21 21:24] LABS: Anti-Thyroglobulin AB < 1.0 IU/mL (0.0-0.9); Thyroglobulin, Serum Qt. 23.8 ng/mL (1.5-38.5); Thyroid Peroxidase AB 12 IU/mL (0-34)
== END ==
PROVIDERS: PCP Family Medicine; Referring Provider Family Medicine; Visit Provider Family Medicine
DX: E55.9 Vitamin D deficiency, unspecified (principal); E03.9 Hypothyroidism, unspecified
CPT/HCPCS: 36415; 82306; 84432; 84439; 84480; 86376; 86800

== ENCOUNTER → 2022-11-12 | Outpatient (CLI) | payer OTHER, SELFPAY ==
[2022-11-12 08:23] LABS: Absolute Lymphocyte Count 1.41 X10^3/uL (0.83-4.51); Absolute Neutrophil Count 2.7 X10^3/uL (2.0-7.7); Basophil# 0.03 X10^3/uL; Basophil% 0.6 % (0-1); Eosinophil# 0.27 X10^3/uL; Eosinophils% 5.5 % (0-5); Hematocrit 41.9 % (37-47); Hemoglobin 13.6 g/dL (12.0-15.0); Lymphocyte # 1.41 X10^3/ul (0.83-4.51); Lymphocyte % 28.5 % (19-41); Mean Corp Hgb Conc 32.5 g/dL (32-36); Mean Corpuscular Hgb 30.4 pg (27.0-32.0); Mean Corpuscular Volume 93.7 fL (81-99); Mean Platelet Vol. 11.5 fl (6.2-12.0); Monocyte# 0.56 X10^3/uL; Monocyte% 11.3 % (0-10); NRBC Flagged by Analyzer 0 % (0-5); Neutrophil # 2.67 X10^3/uL (2.7-7.7); Neutrophil % 53.9 % (47-70); Platelet Count 219 K/mm3 (150-450); RBC Distribution Width CV 12.6 % (11.6-14.6); RBC Distribution Width SD 43.4 fl (35.1-43.9); Red Blood Count 4.47 M/mm3 (4.2-5.4)
[2022-11-12 09:45] LABS: ALB/GLOB Ratio 1.2 RATIO (0.9-2.4); AST(SGOT) 29 U/L (15-37); Alanine Aminotransfer ALT/SGPT 30 U/L (13-56); Albumin, Serum 4.4 g/dL (3.2-5.0); Alkaline Phosphatase 85 U/L (45-117); Anion Gap 6 (5-15); BUN 18 mg/dL (7-18); BUN/Creat Ratio 27.2 RATIO (10-20); Calcium,Total 9.6 mg/dL (8.5-10.1); Chloride 107 mmol/L (98-107); Cholesterol 164 mg/dL (200); Creatinine, Serum 0.66 mg/dL (0.55-1.02); EST Glomerular Filtration Rate 96 mL/min (>60); Est Glom Filt Rate - Afr Amer 116 mL/min (>60); Globulin 3.7 g/dL (2.2-4.2); Glucose 96 mg/dL (74-106); High Density Lipoprotein 91 mg/dL; Protein, Total 8.1 g/dL (6.4-8.2); Sodium Level 141 mmol/L (136-145); T4 Free Direct 0.13 ng/dL (0.76-1.46); Thyroid Stim Hormone (TSH) 0.93 uIU/mL (0.358-3.74); Triglycerides 38 mg/dL; Very Low Density Lipoprotein 8 mg/dL (5-40)
== END | disposition home or self-care (01) ==
LOC: LAB 07:54
PROVIDERS: PCP Family Medicine; Referring Provider Family Medicine; Visit Provider Family Medicine
DX: Z00.00 Encounter for general adult medical examination without abnormal findings (principal); E03.9 Hypothyroidism, unspecified
CPT/HCPCS: 36415; 80053; 80061; 84439; 84443; 85025

== ENCOUNTER → 2024-07-22 | Outpatient (CLI) | payer MEDICARE, OTHER, SELFPAY ==
[2024-07-22 08:47] LABS: Absolute Neutrophil Count 3.5 X10^3/uL (2.0-7.7); Basophil# 0.03 X10^3/uL; Basophil% 0.5 % (0-1); Eosinophil# 0.52 X10^3/uL; Eosinophils% 8.9 % (0-5); Hematocrit 43.7 % (37-47); Hemoglobin 14.1 g/dL (12.0-15.0); Lymphocyte % 22.2 % (19-41); Mean Corp Hgb Conc 32.3 g/dL (32-36); Mean Corpuscular Hgb 29.9 pg (27.0-32.0); Mean Corpuscular Volume 92.8 fL (81-99); Mean Platelet Vol. 11.2 fl (6.2-12.0); Monocyte# 0.52 X10^3/uL; Monocyte% 8.9 % (0-10); NRBC Flagged by Analyzer 0 % (0-5); Neutrophil # 3.47 X10^3/uL (2.7-7.7); Neutrophil % 59.3 % (47-70); Platelet Count 223 K/mm3 (150-450); RBC Distribution Width CV 12.8 % (11.6-14.6); RBC Distribution Width SD 43.8 fl (35.1-43.9); Red Blood Count 4.71 M/mm3 (4.2-5.4); White Blood Count 5.9 K/mm3 (4.4-11.0)
[2024-07-22 09:24] LABS: ALB/GLOB Ratio 1.1 RATIO (0.9-2.4); AST(SGOT) 27 U/L (15-37); Alanine Aminotransfer ALT/SGPT 32 U/L (13-56); Albumin, Serum 3.7 g/dL (3.2-5.0); Alkaline Phosphatase 111 U/L (45-117); Anion Gap 3 (5-15); BUN 16 mg/dL (7-18); BUN/Creat Ratio 25.7 RATIO (10-20); Calcium,Total 9.1 mg/dL (8.5-10.1); Chloride 109 mmol/L (98-107); Cholesterol 167 mg/dL (200); Creatinine, Serum 0.62 mg/dL (0.55-1.02); EST Glomerular Filtration Rate 102 mL/min (>60); Est Glom Filt Rate - Afr Amer 124 mL/min (>60); Globulin 3.5 g/dL (2.2-4.2); Glucose 89 mg/dL (74-106); High Density Lipoprotein 93 mg/dL; Potassium 4.6 mmol/L (3.5-5.1); Protein, Total 7.2 g/dL (6.4-8.2); Sodium Level 141 mmol/L (136-145); T4 Free Direct < 0.10 ng/dL (0.76-1.46); Thyroid Stim Hormone (TSH) 0.136 uIU/mL (0.358-3.740); Triglycerides 45 mg/dL; Very Low Density Lipoprotein 9 mg/dL (5-40)
== END | disposition home or self-care (01) ==
PROVIDERS: PCP Family Medicine; Referring Provider Family Medicine; Visit Provider Family Medicine
DX: Z00.00 Encounter for general adult medical examination without abnormal findings (principal); E03.9 Hypothyroidism, unspecified
CPT/HCPCS: 36415; 80053; 80061; 84439; 84443; 85025

== ENCOUNTER 2024-09-16 17:46 | Emergency (ER) | payer MEDICARE, SELFPAY ==
[2024-09-16 17:47] VITALS: BP 147/69; PULSE 110; RESP 18; TEMP 37.7; O2SAT 99; BMI 22.4
--- NOTE | 2024-09-16 18:19 | CT_ITS ---
INDICATION: RLQ Pain Fever EXAMINATION: CT ABDOMEN AND PELVIS WITH CONTRAST - CT Abdomen And Pelvis W/ Contrast Injection TECHNIQUE: Helically acquired images were obtained of the abdomen and pelvis following IV contrast. A radiation dose optimization technique was used for this scan. IV Contrast dosage and agent: 100 cc Isovue-370 Oral contrast: None. COMPARISON: 04/25/2004 FINDINGS: LOWER CHEST: Lung bases are clear. No cardiomegaly or pericardial effusion. LIVER: No concerning focal mass. GALLBLADDER AND BILIARY TREE: No calcified gallstones. No gallbladder distension or wall edema. No intra- or extrahepatic biliary ductal dilation. PANCREAS: No focal cystic or solid mass. SPLEEN: Normal size without focal cystic or solid mass. ADRENAL GLANDS: No nodules. KIDNEYS AND URETERS: Right perinephric stranding with heterogenous right parenchymal enhancement pattern. No hydronephrosis. PERITONEUM: No ascites or free air. BOWEL: Normal appendix. Increased fluid contents distal small bowel without significant distention. No focal inflammatory change. LYMPH NODES: No enlarged mesenteric or retroperitoneal lymph nodes. VESSELS: Aorta is non-dilated. URINARY BLADDER: Nondistended. REPRODUCTIVE ORGANS: No pelvic masses. ABDOMINAL WALL: No discrete abdominal or pelvic wall hernia. BONES: No acute or aggressive abnormality. CT/Abdomen/Pelvis W IV Cont ONLY IMPRESSION: Findings suspicious for right pyelonephritis. Nonspecific small bowel changes which may indicate enteritis in the appropriate clinical setting. Electronically Signed: Delmar Johnson MD at 20:14 EST ,
--- NOTE | 2024-09-16 18:20 | EDS_ITS ---
HPI HPI - GI History of Present Illness Chief Complaint: Abd Pain Informant: patient Narrative Narrative: 63-year-old female presenting to the emergency room with fever (Tmax 100 degrees) and right lower quadrant abdominal pain. Patient states that she went to [place] in August flew home towards the middle of the month. She developed a low-grade fever and was seen at an urgent care and diagnosed with otitis media placed on antibiotics. She returned a week later with continued fever. Since then she states that she has persisted with the fever went to urgent care today and was concerned that perhaps she had a UTI but also was noting some right lower quadrant right lower pelvic pain. She notes it is worse with laying down and with coughing not so much with walking. She has had prior hysterectomy and removed for ectomy. She still has her appendix and gallbladder. [facility] Medical History (Updated 09/16/24 @ 20:[address] Tre Roberson, DO) Varicose veins of both lower extremities Depression Seborrheic keratosis Non-toxic multinodular goiter Abnormal EKG Incomplete uterovaginal prolapse Thyroid disorder Home Medications ?Medication ?Instructions ?Recorded ?Last Taken ?Type liothyronine 25 mcg tablet 50 mcg PO DAILY 11/25/18 08/03/19 06:30 History magnesium oxide 400 mg (241.3 mg 400 mg PO DAILY PRN PRN 05/17/19 Unknown History magnesium) tablet Constipation cholecalciferol (vit D3) 1,000 1 tab PO DAILY 07/18/20 Unknown History unit-vitamin K2 (MK4) 100 mcg tablet sulfamethoxazole 800 1 tab PO BID #19 tabs 09/16/24 Unknown Rx mg-trimethoprim 160 mg tablet (Bactrim DS) Allergy/AdvReac Type Severity Reaction Status Date / Time Penicillins Allergy Hives Verified 09/16/24 17:47 gluten AdvReac cramping Verified 09/16/24 17:47 and stomach upset levothyroxine sodium (From AdvReac skin Verified 09/16/24 19:57 Synthroid) crawling Family History Mother Arthritis Father Cancer esophageal Sister Hypertrophic cardiomyopathy Surgical History History of cervical polypectomy (~08/2019) History of total vaginal hysterectomy (TVH) (02/11/19) History of bunionectomy of both great toes History of tonsillectomy History of endometrial ablation Social History (Updated 09/16/24 @ 18:54 by Chanel Reyes) household members: spouse housing: house Smoking Status: Never smoker alcohol intake: current alcohol intake frequency: a few times a month substance use type: does not use caffeine: Yes Type: carbonated beverages Number of servings: 1 what type of physical activity do you participate in: walking seatbelt use: always do you feel safe at home: Yes additional social history: [facility] ED Constitutional Constitutional ED: Reports fever(s); Denies chills or weight loss Eyes Eyes: Denies change in vision or diplopia ENT ENT ED: Denies ear pain, rhinorrhea or sore throat Cardiovascular Cardiovascular: Denies chest pain, orthopnea, palpitations or racing heartbeat Respiratory/Chest Respiratory/Chest: Denies cough, dyspnea or orthopnea Gastrointestinal Gastrointestinal: Reports abdominal pain; Denies diarrhea, nausea or vomiting Genitourinary Genitourinary ED: Reports urinary frequency; Denies dysuria or hematuria Musculoskeletal Musculoskeletal: Denies arthralgias or myalgias Integumentary Denies abscess or rash Neurologic Neurologic: Denies headache(s) or weakness Psychiatric Psychiatric: Denies anxiety, depression, suicidal ideation or suicidal thoughts Endocrine Endocrinology: Denies polydipsia, polyphagia or polyuria Allergic/Immunologic Allergic/Immunologic ED: Denies mouth swelling, tongue swelling or urticaria EXAM Physical Exam Const Vital Signs: 09/16/24 17:47 09/16/24 19:47 09/16/24 20:39 Temperature 100 F H 98.1 F Temperature Source Oral Pulse Rate 110 H 89 78 Respiratory Rate 18 16 16 Blood Pressure 147/69 H 120/63 120/74 Blood Pressure Mean 95 82 89 Pulse Ox 99 94 97 Oxygen Delivery Method Room Air Room Air Positive well nourished and well developed General Appearance ED: well developed HEENT Reports normocephalic, head/scalp atraumatic and moist mucous membranes Eyes PERRL and EOMs intact bilaterally Neck no lymphadenopathy, supple and no JVD Resp normal respiratory effort and clear to auscultation bilaterally Cardio regular rate, regular rhythm and no murmurs GI non-distended Auscultation: normoactive bowel sounds Palpation: soft and tender RLQ; Negative for guarding, rigid or rebound tenderness present Back/Spine no CVA tenderness and normal ROM Extremity normal to inspection General Extremety ED: Negative for edema General Extremity: Negative for edema Neuro oriented x3 and CN's II-XII intact bilaterally Sensorium / Orientation: alert Motor Exam: strength 5/5 throughout Psych mental status grossly normal Mood & Affect: Negative for depressed or tearful Skin no rashes or lesions noted and no wounds MDM MDM MDM Narrative Medical decision making narrative: Differential diagnosis includes appendicitis colitis UTI/pyelonephritis ureterolithiasis abscess diverticulitis White count slightly elevated 12.7 78.1 neutrophils hemoglobin 12.4 platelet count is 232. BMP shows a glucose of 110 normal creatinine normal LFTs. Urinalysis 10-25 white cells 3+ bacteria positive nitrates will be sent for culture. CT abdomen pelvis shows changes consistent with pyelonephritis. While temperature is 100 is reducible with Tylenol which the patient took here in the department and she is down to 98.1. We did start her on Bactrim. History & Record Review Discussion w/independent historian: Patient and Significant other Lab Data Attestation: I reviewed the patient's lab results. Labs: Laboratory Results - last 24 hr 09/16/24 09/16/24 18:00 18:57 WBC 12.7 H RBC 4.07 L Hgb 12.4 Hct 37.5 MCV 92.1 MCH 30.5 MCHC 33.1 RDW Std Deviation 45.1 H RDW Coeff of Nolan 13.2 Plt Count 232 MPV 11.2 Immature Gran % (Auto) 0.300 Neut % (Auto) 78.1 H Lymph % (Auto) 12.1 L [place] % (Auto) 8.8 Eos % (Auto) 0.5 Baso % (Auto) 0.2 Absolute Neuts (auto) 9.9 H Absolute Lymphs (auto) 1.53 Nucleated RBC % 0 Sodium 136 Potassium 3.4 L Chloride 102 Carbon Dioxide 28.0 Anion Gap 5 BUN 12 Creatinine 0.77 Estim Creat Clear Calc 68.18 Est GFR (MDRD) Af Amer 96 Est GFR (MDRD) Non-Af 80 BUN/Creatinine Ratio 15.6 Glucose 110 H Calcium 9.4 Total Bilirubin 0.70 Direct Bilirubin 0.23 AST 21 ALT 25 Alkaline Phosphatase 93 Total Protein 7.8 Albumin 3.8 Globulin 4.0 Urine Color Yellow Urine Clarity Clear Urine pH 6.0 Ur Specific [place] 1.015 Urine Protein 30 H Urine Glucose (UA) Normal Urine Ketones 50 H Urine Occult Blood 150 H Urine Nitrite Positive H Urine Bilirubin Negative Urine Urobilinogen Normal Ur Leukocyte Esterase 100 H Urine RBC 0-5 SEEN Urine WBC 10-25 SEEN Ur Squamous Epith Cells 0-5 SEEN Urine Bacteria 3+ Urine Mucus 0 SEEN Radiography Diagnostic Testing: Clinical Impression(s) from Imaging Studies Abdomen/Pelvis CT 09/16/24 18:19 IMPRESSION: Findings suspicious for right pyelonephritis. Nonspecific small bowel changes which may indicate enteritis in the appropriate clinical setting. Electronically Signed: Delmar Johnson MD at 20:14 EST , Discharge Plan Triage Chief Complaint: Abd Pain ED Provider: Tre Roberson Dx/Rx/DC Orders Clinical Impression: Acute pyelonephritis Instructions: ED Pyelonephritis, Female (Adult) Prescriptions: New sulfamethoxazole-trimethoprim [Bactrim DS] 800-160 mg tablet 1 tab PO BID Qty: 19 0RF No Action liothyronine 25 mcg tablet 50 mcg PO DAILY magnesium oxide 400 mg (241.3 mg magnesium) tablet 400 mg PO DAILY PRN PRN (Reason: Constipation) vitamin D3-vitamin K2 (MK4) 1,000-100 unit-mcg tablet 1 tab PO DAILY Primary Care Provider: Maria Teresa Parker Referrals: Maria Teresa Parker MD [Primary Care Provider] - 1 Week if not improving Print Language: Iranian Disposition Disposition: Home, Self Care
[2024-09-16 18:45] LABS: AST(SGOT) 21 U/L (15-37); Alanine Aminotransfer ALT/SGPT 25 U/L (13-56); Albumin, Serum 3.8 g/dL (3.2-5.0); Alkaline Phosphatase 93 U/L (45-117); Anion Gap 5 (5-15); BUN 12 mg/dL (7-18); BUN/Creat Ratio 15.6 RATIO (10-20); Bilirubin, Direct 0.23 mg/dL (0.00-0.30); Calcium,Total 9.4 mg/dL (8.5-10.1); Chloride 102 mmol/L (98-107); Creatinine, Serum 0.77 mg/dL (0.55-1.02); EST Glomerular Filtration Rate 80 mL/min (>60); Est Glom Filt Rate - Afr Amer 96 mL/min (>60); Estimated Creatinine Clearance 68.18 ml/min; Glucose 110 mg/dL (74-106); Potassium 3.4 mmol/L (3.5-5.1); Protein, Total 7.8 g/dL (6.4-8.2); Sodium Level 136 mmol/L (136-145)
[2024-09-16 18:53] LABS: Absolute Lymphocyte Count 1.53 X10^3/uL (0.83-4.51); Absolute Neutrophil Count 9.9 X10^3/uL (2.0-7.7); Basophil# 0.02 X10^3/uL; Basophil% 0.2 % (0-1); Eosinophil# 0.06 X10^3/uL; Eosinophils% 0.5 % (0-5); Hematocrit 37.5 % (37-47); Hemoglobin 12.4 g/dL (12.0-15.0); Lymphocyte # 1.53 X10^3/ul (0.83-4.51); Lymphocyte % 12.1 % (19-41); Mean Corp Hgb Conc 33.1 g/dL (32-36); Mean Corpuscular Hgb 30.5 pg (27.0-32.0); Mean Corpuscular Volume 92.1 fL (81-99); Mean Platelet Vol. 11.2 fl (6.2-12.0); Monocyte# 1.12 X10^3/uL; Monocyte% 8.8 % (0-10); NRBC Flagged by Analyzer 0 % (0-5); Neutrophil % 78.1 % (47-70); Platelet Count 232 K/mm3 (150-450); RBC Distribution Width CV 13.2 % (11.6-14.6); RBC Distribution Width SD 45.1 fl (35.1-43.9); Red Blood Count 4.07 M/mm3 (4.2-5.4); White Blood Count 12.7 K/mm3 (4.4-11.0)
[2024-09-16 19:01] LABS: Mucous, Urine 0 SEEN /hpf (<or=2+)
[2024-09-16 19:08] LABS: Color, Urine Yellow (Yellow); Glucose, Dipstick Normal (Normal); Ketone-Dipstick 50 mg/dl (Negative); Leukocyte Esterase-Dipstick 100 /ul (Negative); Nitrite-Dipstick Positive (Negative); Occult Blood-Urine 150 /ul (Negative); Protein-Dipstick 30 mg/dl (Negative); Specific Gravity, Urine 1.015 (1.002-1.030); Urine Bilirubin Dipstick Negative (Negative); Urine Clarity Clear (Clear); Urine Urobilinogen Normal (Normal)
[2024-09-16 19:21] LABS: Bacteria 3+ /hpf (None Seen); Red Blood Cells-Urine 0-5 SEEN /hpf (0-5); Squamous Epithelial Cells - UA 0-5 SEEN /hpf (5-10); White Blood Cells 10-25 SEEN /hpf (0-5)
[2024-09-16 19:47] VITALS: BP 120/63; PULSE 89; RESP 16; O2SAT 94
[2024-09-16] MEDS: Smz/Tmp Ds Tablet 1 TABLET PO (20:35)
[2024-09-16 20:39] VITALS: BP 120/74; PULSE 78; RESP 16; TEMP 36.7; O2SAT 97
== END 2024-09-16 21:37 | disposition home or self-care (01) ==
PROVIDERS: Emergency Provider Emergency Medicine; PCP Family Medicine; Referring Provider Emergency Medicine; Visit Provider Emergency Medicine
DX: N10 Acute pyelonephritis (principal); H66.90 Otitis media, unspecified, unspecified ear; Z90.710 Acquired absence of both cervix and uterus
CPT/HCPCS: 74177; 80048; 80076; 81001; 85025; 87086; 87088; 87186; 99282; Q9967; A4216

== ENCOUNTER → 2024-10-01 | Outpatient (CLI) | payer MEDICARE, SELFPAY ==
[2024-10-01 15:44] LABS: Anion Gap 3 (5-15); BUN 18 mg/dL (7-18); BUN/Creat Ratio 21.2 RATIO (10-20); Calcium,Total 9.1 mg/dL (8.5-10.1); Chloride 105 mmol/L (98-107); Creatinine, Serum 0.85 mg/dL (0.55-1.02); EST Glomerular Filtration Rate 71 mL/min (>60); Est Glom Filt Rate - Afr Amer 86 mL/min (>60); Glucose 104 mg/dL (74-106); Potassium 3.8 mmol/L (3.5-5.1); Sodium Level 138 mmol/L (136-145)
== END | disposition home or self-care (01) ==
LOC: BWCLAB 13:20
PROVIDERS: PCP Family Medicine; Referring Provider Nurse Practitioner Women's Health; Visit Provider Nurse Practitioner Women's Health
DX: N10 Acute pyelonephritis (principal)
CPT/HCPCS: 36415; 80048; 87086

== ENCOUNTER → 2025-07-18 | Outpatient (CLI) | payer MEDICARE, SELFPAY ==
[2025-07-18 10:47] LABS: Hematocrit 40.9 % (37-47); Hemoglobin 13.4 g/dL (12.0-15.0); Immature Granulocytes Count 0.010 X10^3/uL (0.0-0.0); Mean Corp Hgb Conc 32.8 g/dL (32-36); Mean Corpuscular Volume 92.3 fL (81-99); Mean Platelet Vol. 11.2 fl (6.2-12.0); NRBC Flagged by Analyzer 0 % (0-5); Platelet Count 195 K/mm3 (150-450); RBC Distribution Width CV 12.5 % (11.6-14.6); RBC Distribution Width SD 42.7 fl (35.1-43.9); Red Blood Count 4.43 M/mm3 (4.2-5.4); White Blood Count 6.8 K/mm3 (4.4-11.0)
[2025-07-18 12:06] LABS: AST(SGOT) 33 U/L (<=31); Alanine Aminotransfer ALT/SGPT 25 U/L (<=34); Albumin, Serum 4.4 g/dL (3.4-4.8); Alkaline Phosphatase 81 U/L (35-104); Anion Gap 9 (5-15); BUN 16 mg/dL (4-19); BUN/Creat Ratio 23.0 RATIO (10-20); Calcium,Total 9.4 mg/dL (7.6-11.0); Carbon Dioxide 25.3 mmol/L (21.0-32.0); Chloride 105 mmol/L (98-108); Cholesterol 180 mg/dL (<=200); Globulin 2.8 g/dL (2.2-4.2); Glucose 87 mg/dL (70-99); Low Density Lipoprotein Calc. 77 mg/dL; Magnesium 2.1 mg/dL (1.5-2.2); Potassium 4.1 mmol/L (3.3-5.1); Triglycerides 54 mg/dL; Very Low Density Lipoprotein 11 mg/dL (5-40); cholesterol:hdl ratio screen 1.94
== END | disposition home or self-care (01) ==
LOC: LAB 10:12
PROVIDERS: PCP Family Medicine; Referring Provider Family Medicine; Visit Provider Family Medicine
DX: Z00.00 Encounter for general adult medical examination without abnormal findings (principal); E03.9 Hypothyroidism, unspecified
CPT/HCPCS: 36415; 80053; 80061; 83735; 84439; 84443; 85025

== ENCOUNTER → 2025-08-18 | Outpatient (CLI) | payer MEDICARE, SELFPAY ==
--- NOTE | 2025-08-18 10:14 | BD_ITS ---
PROCEDURE: DEXA BONE DENSITY STUDY 08/18/2025 REASON FOR EXAM: F, age 64 y/o . Postmenopausal. TECHNIQUE: Procedure Code: BDDBD Modality: DX Procedure: DEXA BONE DENSITY STUDY COMPARISON: None FINDINGS: BMD and T-SCORES Lumbar spine: 0.596 g/cm2, T-score -4.1 Levels: L1 through L4 Left femoral neck: 0.489 g/cm2, T-score -3.2 Femoral neck comparison data not recommended for monitoring change. Left total hip: 0.574 g/cm2, T-score -3.0 Right femoral neck: 0.484 g/cm2, T-score -3.3 Femoral neck comparison data not recommended for monitoring change. Right total hip: 0.570 g/cm2, T-score -3.3 The World Health Organization has defined the following categories based on bone density: Normal bone density: T-score equal to or greater than -1.0 Osteopenia: T-score between -1.0 and -2.5 Osteoporosis: T-score equal to or less than -2.5 FRAX (or Comparable) Fracture Risk Assessment: 10 Year Probability of Fracture: Major Osteoporotic Fracture: 18% Hip Fracture: 5.9% (Note: FRAX is not to be reported in setting of normal range bone density, osteoporosis on DEXA, known history of osteoporosis, prior osteoporotic hip or vertebral fracture, or for any patient undergoing pharmacological treatment for bone loss.) The National Osteoporosis Foundation (NOF) recommends pharmacological treatment for patients with a FRAX 10-year risk of 3% or higher for a hip fracture, or 20% or higher for a major osteoporotic fracture, to prevent osteoporosis and reduce fracture risk. The patient does meet the pharmacological treatment recommendations for prevention of osteoporosis. BD/Dexa Bone Density Study IMPRESSION: OSTEOPOROSIS. Recommend follow-up as clinically warranted. Reading Location: [place] [id number]
--- OUTSIDE RECORDS SUMMARY | 2025-08-18 12:58 | XMS RPT_ITS | CCD ---
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 Name Role Phone CHRISTEN Gama RN, Chanel Walton Unavailable Emigdio Gama RN RN, Chanel Walton Unavailable Unavailaubree Golden MD, Khadijah Pack Unavailable [phone] Khadijah Golden MD Unavailable [phone] Mimichelle, Maria Teresa Referring Unavailable Micortneyel Maria Teresa Attending Unavailable Miedel, Maria Teresa Primary Care Unavailable Miedel, Maria Teresa Primary Care Unavailable Tre Roberson Referring Unavailable Tre Roberson Attending Unavailable Miedel, Maria Teresa Referring Unavailable Miedel, Maria Teresa Attending Unavailable Miedel, Maria Teresa Primary Care Unavailable Miedel, Maria Teresa Primary Care Unavailable Consuelo Rodriguez NP Referring Unavailable Consuelo Rodriguez NP Attending Unavailable Allergies Allergy Classification Reported Allergen(s) Allergy Type Date of Onset Reaction(s) Facility (5 sources) penicillin v drug allergy 5 Rash/ Hives [facility] [place] (1 source) Gluten Drug allergy (disorder) 4 [facility] (1 source) levothyroxine Drug Allergy 4 [facility] (1 source) Penicillins Drug allergy (disorder) 4 [facility] Medications Completed/Discontinued Medications Medication Drug Class(es) Dates Sig (Normalized) Sig (Original) estradiol 0.1 mg/ml vaginal cream (1 source) Estrogen Start: 08-06-2017 ESTRACE 0.1 MG/GM CREA apply fingertip amount to vagina nightly x 2 weeks, then every other night x 2 weeks, then 1-3x weekly for maintenance ESTRADIOL [id number] Khadijah Golden MD Start: 08-06-2017 ESTRACE 0.1 MG /GM CREA apply fingertip amount to vagina nightly x 2 weeks, then every other night x 2 weeks, then 1-3x weekly for maintenance ESTRADIOL [id number] Khadijah Golden MD [facility]. DEVICES (3 sources) Start: 05-08-2017 RING PESSARY/S UPPORT MISC size 5 ring with support use vaginally MIS. DEVICES [id number] Khadijah Golden MD [facility]. DEVICES (1 source) Start: 05-08-2017 RING PESSARY/S UPPORT size 5 ring with support use vaginally MIS. DEVICES [id number] Khadijah Golden MD [facility]. DEVICES (1 source) Start: 05-08-2017 RING PESSARY/S UPPORT MISC size 5 ring with support use vaginally MIS. DEVICES [id number] Khadijah Golden MD liothyronine sodium 0.025 mg oral tablet (10 sources) l-Triiod othyroni ne Start: 05-08-2017 take 2 tablets by mouth once daily CYTOMEL 25 MCG TABS Two tablets by mouth daily LIOTHYRONINE SODIUM [id number] Khadijah Golden MD Start: 05-08-2017 take 2 tablets by mo [facility] once daily CYTOMEL 25 MCG TABS Two tablets by mouth daily LIOTHYRONINE SODIUM [id number] Khadijah Golden MD Start: 11-24-2014 take 1 tablet by paramjit th three times daily CYTOMEL 25 MCG TABS One tablet by mouth three times daily LIOTHYRONINE SODIUM [id number] Evelia Thomas Start: 11-24-2014 take 1 tablet by paramjit th three times daily CYTOMEL 25 MCG TABS One tablet by mouth three times daily LIOTHYRONINE SODIUM [id number] Eveila Thomas Problems Active Problems Problem Classification Problem Date Documented Date Episodic/Chronic Osteoporosis (1 source) Age-related osteoporosis without current pathological fracture; Translations: [Age-related osteoporosis without current pathological fracture] Onset: 08-07-2025 Chronic Other nervous system disorders (16 sources) Carpal tunnel syndrome; Translations: [Ulnar nerve entrapment] Onset: 11-24-2014 Resolved: 05-11-2017 05-11-2017 Chronic Other nervous system disorders (2 sources) Ulnar nerve entrapment; Translations: [Lesion of ulnar nerve, right upper limb] Onset: 11-24-2014 Resolved: 05-11-2017 05-11-2017 Chronic Prolapse of female genital organs (4 sources) Incomplete uterovaginal prolapse; Translations: [Incomplete uterovaginal prolapse] Onset: 05-08-2017 05-11-2017 Chronic Unclassified (3 sources) Screening mammography ; Translations: [Encounter for screening mammogram for malignant neoplasm of breast] Onset: 05-08-2017 05-11-2017 Unclassified (4 sources) Screening for malignant neoplasm of cervix ; Translations: [Encounter for screening for malignant neoplasm of cervix] Onset: 05-08-2017 05-08-2017 Unclassified (4 sources) Gynecologic examination ; Translations: [Encounter for gynecological examination (general) (routine) with abnormal findings] Onset: 05-08-2017 05-08-2017 Unclassified (1 source) Procedure carried out on subject; Translations: [Encounter for screening for human papillomavirus (HPV)] Onset: 05-08-2017 05-08-2017 Past or Other Problems Problem Classification Problem Date Documented Date Episodic/Chronic Abdominal pain (1 source) Right lower quadrant pain; Translations: [Right lower quadrant pain] Onset: 10-19-2024 Episodic Immunizations and screening for infectious disease (4 sources) Encounter for screening for human papillomavirus (HPV); Translations: [Encounter for screening for human papillomavirus (HPV)] Onset: 05-08-2017 05-08-2017 Episodic Other female genital disorders (3 sources) History of abnormal cervical Papanicolaou smear ; Translations: [Personal history of other diseases of the female genital tract] Onset: 05-15-2017 05-15-2017 Episodic Urinary tract infections (1 source) Acute pyelonephritis; Translations: [Acute pyelonephritis] Onset: 10-29-2024 Episodic Results Test Name Value Interpretation Reference Range Facility CBC W/Diff, Automatedon 07-06 Absolute Lymph 1.02 X10 3/uL Normal 0.83-4.51 [facility] Comment on above: Performed By: #### L 500.4050, L501.5200, L506.0400, L501.9520, L500.4100, L100.0100 #### [facility] [address] [place], [address] Absolute Neut 4.8 X10 3/uL Normal 2.0-7.7 [facility] Comment on above: Performed By: #### L 500.4050, L501.5200, L506.0400, L501.9520, L500.4100, L100.0100 #### [facility] [address] [place], [address] Basophils/100 WBC (Bld) 0.4 % Normal 0-1 [facility] Comment on above: Performed By: #### L 500.4050, L501.5200, L506.0400, L501.9520, L500.4100, L100.0100 #### [facility] [address] [place], [address] Eosinophils/100 WBC (Bld) 4.8 % Normal 0-5 [facility] Comment on above: Performed By: #### L 500.4050, L501.5200, L506.0400, L501.9520, L500.4100, L100.0100 #### [facility] [address] [place], [address] Erythrocyte distribution width (RBC) [Ratio] 12.5 % Normal 11.6-14.6 [facility] Comment on above: Performed By: #### L 500.4050, L501.5200, L506.0400, L501.9520, L500.4100, L100.0100 #### [facility] [address] [place], [address] Hematocrit (Bld) [Volume fraction] 40.9 % Normal 37-47 [facility] Comment on above: Performed By: #### L 500.4050, L501.5200, L506.0400, L501.9520, L500.4100, L100.0100 #### [facility] [address] [place], [address] Hemoglobin (Bld) [Mass/Vol] 13.4 g/dL Normal 12.0-15.0 [facility] Comment on above: Performed By: #### L 500.4050, L501.5200, L506.0400, L501.9520, L500.4100, L100.0100 #### [facility] [address] [place], [address] IG% 0.100 Normal 0.0-0.9 [facility] Comment on above: Result Comment: IG% - Immature Granulocytes (promyelocytes, myelocytes and metamyelocytes) > 1% indicates that a LEFT SHIFT is Present. Performed By: #### L 500.4050, L501.5200, L506.0400, L501.9520, L500.4100, L100.0100 #### [facility] [address] [place], [address] Lymphocytes/100 WBC (Bld) 15.0 % Low 19-41 [facility] Comment on above: Performed By: #### L 500.4050, L501.5200, L506.0400, L501.9520, L500.4100, L100.0100 #### [facility] [address] [place], [address] MCH (RBC) [Entitic mass] 30.2 pg Normal 27.0-32.0 [facility] Comment on above: Performed By: #### L 500.4050, L501.5200, L506.0400, L501.9520, L500.4100, L100.0100 #### [facility] [address] [place], [address] MCHC (RBC) [Mass/Vol] 32.8 g/dL Normal 32-36 [facility] Comment on above: Performed By: #### L 500.4050, L501.5200, L506.0400, L501.9520, L500.4100, L100.0100 #### [facility] [address] [place], [address] MCV (RBC) [Entitic vol] 92.3 fL Normal 81-99 [facility] Comment on above: Performed By: #### L 500.4050, L501.5200, L506.0400, L501.9520, L500.4100, L100.0100 #### [facility] [address] [place], [address] Monocytes/100 WBC (Bld) 9.3 % Normal 0-10 [facility] Comment on above: Performed By: #### L 500.4050, L501.5200, L506.0400, L501.9520, L500.4100, L100.0100 #### [facility] [address] [place], [address] Neutrophils/100 WBC (Bld) 70.4 % High 47-70 [facility] Comment on above: Performed By: #### L 500.4050, L501.5200, L506.0400, L501.9520, L500.4100, L100.0100 #### [facility] [address] [place], [address] Nucleated RBC (Bld) [#/Vol] 0 10*3/uL Normal 0-5 [facility] Comment on above: Performed By: #### L 500.4050, L501.5200, L506.0400, L501.9520, L500.4100, L100.0100 #### [facility] [address] [place], [address] Platelet mean volume (Bld) [Entitic vol] 11.2 fL Normal 6.2-12.0 [facility] Comment on above: Performed By: #### L 500.4050, L501.5200, L506.0400, L501.9520, L500.4100, L100.0100 #### [facility] [address] [place], [address] Platelets (Bld) [#/Vol] 195 10*3/uL Normal 150-450 [facility] Comment on above: Performed By: #### L 500.4050, L501.5200, L506.0400, L501.9520, L500.4100, L100.0100 #### [facility] [address] [place], [address] RBC (Bld) [#/Vol] 4.43 10*6/uL Normal 4.2-5.4 [facility] Comment on above: Performed By: #### L 500.4050, L501.5200, L506.0400, L501.9520, L500.4100, L100.0100 #### [facility] [address] [place], [address] RDW SD 42.7 fl Normal 35.1-43.9 [facility] Comment on above: Performed By: #### L 500.4050, L501.5200, L506.0400, L501.9520, L500.4100, L100.0100 #### [facility] [address] [place], [address] WBC (Bld) [#/Vol] 6.8 10*3/uL Normal 4.4-11.0 [facility] Comment on above: Performed By: #### L 500.4050, L501.5200, L506.0400, L501.9520, L500.4100, L100.0100 #### [facility] [address] [place], [address] Comprehensive Metabolic Prof ilsallie 07-18-2025 Albumin [Mass/Vol] 4.4 g/dL Normal 3.4-4.8 [facility] Comment on above: Performed By: #### L 500.4050, L501.5200, L506.0400, L501.9520, L500.4100, L100.0100 #### [facility] [address] [place], [address] Albumin/Globulin [Mass ratio] 1.6 {ratio} Normal 0.9-2.4 [facility] Comment on above: Performed By: #### L 500.4050, L501.5200, L506.0400, L501.9520, L500.4100, L100.0100 #### [facility] [address] [place], [address] ALK PHOS 81 U/L Normal 35-104 [facility] Comment on above: Performed By: #### L 500.4050, L501.5200, L506.0400, L501.9520, L500.4100, L100.0100 #### [facility] [address] [place], [address] ALT [Catalytic activity/Vol] 25 U/L Normal <=34 [facility] Comment on above: Performed By: #### L 500.4050, L501.5200, L506.0400, L501.9520, L500.4100, L100.0100 #### [facility] [address] [place], [address] AST [Catalytic activity/Vol] 33 U/L High <=31 [facility] Comment on above: Performed By: #### L 500.4050, L501.5200, L506.0400, L501.9520, L500.4100, L100.0100 #### [facility] [address] [place], [address] Bilirubin [Mass/Vol] 0.67 mg/dL Normal 0.00-1.30 [facility] Comment on above: Performed By: #### L 500.4050, L501.5200, L506.0400, L501.9520, L500.4100, L100.0100 #### [facility] [address] [place], [address] BUN/CRE 23.0 RATIO High 10-20 [facility] Comment on above: Performed By: #### L 500.4050, L501.5200, L506.0400, L501.9520, L500.4100, L100.0100 #### [facility] [address] [place], [address] Calcium [Mass/Vol] 9.4 mg/dL Normal 7.6-11.0 [facility] Comment on above: Performed By: #### L 500.4050, L501.5200, L506.0400, L501.9520, L500.4100, L100.0100 #### [facility] [address] [place], [address] Chloride [Moles/Vol] 105 mmol/L Normal 98-108 [facility] Comment on above: Performed By: #### L 500.4050, L501.5200, L506.0400, L501.9520, L500.4100, L100.0100 #### [facility] [address] [place], [address] CO2 [Moles/Vol] 25.3 mmol/L Normal 21.0-32.0 [facility] Comment on above: Performed By: #### L 500.4050, L501.5200, L506.0400, L501.9520, L500.4100, L100.0100 #### [facility] [address] [place], [address] Creatinine [Mass/Vol] 0.67 mg/dL Low 0.70-1.20 [facility] Comment on above: Performed By: #### L 500.4050, L501.5200, L506.0400, L501.9520, L500.4100, L100.0100 #### [facility] [address] [place], [address] GAP 9 Normal 5-15 [facility] Comment on above: Performed By: #### L 500.4050, L501.5200, L506.0400, L501.9520, L500.4100, L100.0100 #### [facility] [address] [place], [address] GFR/1.73 sq M.predicted among non-blacks MDRD (S/P/Bld) [Vol rate/Area] 96 mL/min/{1.73_m2} Normal >60 [facility] Comment on above: Result Comment: mL/m in/1.73m2 CKD-EPI Creatinine Equation (2020) Performed By: #### L 500.4050, L501.5200, L506.0400, L501.9520, L500.4100, L100.0100 #### [facility] [address] [place], [address] Globulin (S) [Mass/Vol] 2.8 g/dL Normal 2.2-4.2 [facility] Comment on above: Performed By: #### L 500.4050, L501.5200, L506.0400, L501.9520, L500.4100, L100.0100 #### [facility] [address] [place], [address] Glucose [Mass/Vol] 87 mg/dL Normal 70-99 [facility] Comment on above: Performed By: #### L 500.4050, L501.5200, L506.0400, L501.9520, L500.4100, L100.0100 #### [facility] [address] [place], [address] Potassium [Moles/Vol] 4.1 mmol/L Normal 3.3-5.1 [facility] Comment on above: Performed By: #### L 500.4050, L501.5200, L506.0400, L501.9520, L500.4100, L100.0100 #### [facility] [address] [place], [address] Sodium [Moles/Vol] 139 mmol/L Normal 133-145 [facility] Comment on above: Performed By: #### L 500.4050, L501.5200, L506.0400, L501.9520, L500.4100, L100.0100 #### [facility] [address] [place], [address] T PROT 7.2 g/dL Normal 5.9-8.4 [facility] Comment on above: Performed By: #### L 500.4050, L501.5200, L506.0400, L501.9520, L500.4100, L100.0100 #### [facility] [address] [place], [address] Urea nitrogen [Mass/Vol] 16 mg/dL Normal 4-19 [facility] Comment on above: Performed By: #### L 500.4050, L501.5200, L506.0400, L501.9520, L500.4100, L100.0100 #### [facility] [address] [place], [address] Lipid Profileon 07-18-2025 CHOL:HDL 1.94 Normal [facility] Comment on above: Performed By: #### L 500.4050, L501.5200, L506.0400, L501.9520, L500.4100, L100.0100 #### [facility] [address] [place], [address] Cholesterol [Mass/Vol] 180 mg/dL Normal <=200 [facility] Comment on above: Result Comment: Chol esterol level, Desirable <200 mg/dL Borderline high cholesterol 200-239 mg/dL High cholesterol >=240 mg/dL Recommendations of the NCEP Adult Treatment Panel for the following risk-cutoff thresholds for the [place] population. Performed By: #### L 500.4050, L501.5200, L506.0400, L501.9520, L500.4100, L100.0100 #### [facility] [address] [place], [address] Cholesterol in HDL [Mass/Vol] 93 mg/dL Normal [facility] Comment on above: Result Comment: Fern onal Cholesterol Education Program (NCEP) guidelines: <40 mg/dL: Low HDL-cholesterol (major risk factor for CHD) >= 60 mg/dL: High HDL-cholesterol (negative risk factor for CHD) HDL-cholesterol is affected by a number of factors, e.g. smoking, exercise, hormones, sex and age. Performed By: #### L 500.4050, L501.5200, L506.0400, L501.9520, L500.4100, L100.0100 #### [facility] [address] [place], [address] Cholesterol in LDL [Mass/Vol] 77 mg/dL Normal [facility] Comment on above: Result Comment: Bord ysidjl=789-392 mg/dL Higher Yetv=861 mg/dL or greater Friedwald Equation for LDL-C Performed By: #### L 500.4050, L501.5200, L506.0400, L501.9520, L500.4100, L100.0100 #### [facility] [address] [place], [address] Cholesterol in VLDL [Mass/Vol] 11 mg/dL Normal 5-40 [facility] Comment on above: Performed By: #### L 500.4050, L501.5200, L506.0400, L501.9520, L500.4100, L100.0100 #### [facility] [address] [place], [address] Triglyceride [Mass/Vol] 54 mg/dL Normal [facility] Comment on above: Result Comment: The drugs N-Acetylcysteine and Metamizole may falsely depress this assay. Normal range: <150 mg/dL Borderline High: 150-199 mg/dL High: 200-499 mg/dL Very High: >500 mg/dL Performed By: #### L 500.4050, L501.5200, L506.0400, L501.9520, L500.4100, L100.0100 #### [facility] [address] [place], [address] Magnesiumon 07-18-2025 Magnesium [Mass/Vol] 2.1 mg/dL Normal 1.5-2.2 [facility] Comment on above: Performed By: #### L 100.0100, L500.2500, L500.3400 #### [facility] [address] [place], [address] T4 Free Directon 07-18-2025 T4 FREE DIRECT < 0.11 Low 0.76-1.46 [facility] Comment on above: Performed By: #### L 100.0100, L500.2500, L500.3400 #### [facility] [address] [place], [address] Thyroid Stim Hormone (TSH)on 07-18-2025 TSH 0.324 uIU/mL Normal 0.300-4.200 [facility] Comment on above: Performed By: #### L 100.0100, L500.2500, L500.3400 #### [facility] [address] [place], [address] Urine Cultureon 10-05-2024 [facility] Culture exhibits no growth. Normal [facility] Comment on above: Performed By: #### L 100.0100, L500.2500, L500.3400 #### [facility] [address] [place], [address] Basic Metabolic Profile (BMP )on 10-01-2024 BUN/CRE 21.2 RATIO High 10-20 [facility] Comment on above: Performed By: #### L 100.0100, L500.2500, L500.3400 #### [facility] [address] [place], [address] CA,Total 9.1 mg/dL Normal 8.5-10.1 [facility] Comment on above: Performed By: #### L 100.0100, L500.2500, L500.3400 #### [facility] [address] [place], [address] Chloride [Moles/Vol] 105 mmol/L Normal 98-107 [facility] Comment on above: Performed By: #### L 100.0100, L500.2500, L500.3400 #### [facility] [address] [place], [address] CO2 [Moles/Vol] 30.0 mmol/L Normal 21.0-32.0 [facility] Comment on above: Performed By: #### L 100.0100, L500.2500, L500.3400 #### [facility] [address] [place], [address] Creatinine [Mass/Vol] 0.85 mg/dL Normal 0.55-1.02 [facility] Comment on above: Result Comment: The validity of the calculated GFR GFRAA in patients over 70 years has not been determined. Clinical correlation is essential. Performed By: #### L 100.0100, L500.2500, L500.3400 #### [facility] [address] [place], [address] EST GFR - AA 86 mL/min Normal >60 [facility] Comment on above: Result Comment: Afri can [place] GFR Calc Performed By: #### L 100.0100, L500.2500, L500.3400 #### [facility] [address] [place], [address] GAP 3 Low 5-15 [facility] Comment on above: Performed By: #### L 100.0100, L500.2500, L500.3400 #### [facility] [address] [place], [address] GFR/1.73 sq M.predicted among non-blacks MDRD (S/P/Bld) [Vol rate/Area] 71 mL/min/{1.73_m2} Normal >60 [facility] Comment on above: Result Comment: Non- GFR Calc Performed By: #### L 100.0100, L500.2500, L500.3400 #### [facility] [address] [place], [address] Glucose [Mass/Vol] 104 mg/dL Normal 74-106 [facility] Comment on above: Result Comment: Fast ing Glucose result from 100 to 125 mg/dL suggests IMPAIRED HOMEOSTASIS per A.D.A. criteria. Performed By: #### L 100.0100, L500.2500, L500.3400 #### [facility] [address] [place], [address] Potassium [Moles/Vol] 3.8 mmol/L Normal 3.5-5.1 [facility] Comment on above: Performed By: #### L 100.0100, L500.2500, L500.3400 #### [facility] [address] [place], [address] Sodium [Moles/Vol] 138 mmol/L Normal 136-145 [facility] Comment on above: Performed By: #### L 100.0100, L500.2500, L500.3400 #### [facility] [address] [place], [address] Urea nitrogen [Mass/Vol] 18 mg/dL Normal 7-18 [facility] Comment on above: Performed By: #### L 100.0100, L500.2500, L500.3400 #### [facility] [address] [place], [address] Urine Cultureon 09-18-2024 [facility] Presumptive E. coli [place] Count 80,000-100,000 Presumptive E. coli: REACTION Ampicillin Islt NICOLASA <=2 Ampicillin+Sulbac Islt NICOLASA <=2 S Cefepime Islt NICOLASA <=0.12 S cefTRIAXone Islt NICOLASA <=0.25 S Ciprofloxacin Islt NICOLASA <=0.06 S B-Lactamase Extended Susc Islt NEG Gentamicin Islt NICOLASA <=1 S levoFLOXacin Islt NICOLASA <=0.12 S Meropenem Islt NICOLASA <=0.25 S Nitrofurantoin Islt NICOLASA <=16 S Pip+Tazo Islt NICOLASA <=4 S TMP SMX Islt NICOLASA <=20 S Normal [facility] Comment on above: Performed By: #### M 100.2200 #### [facility] [address] [place], [address] Abdomen/Pelvis W IV Cont ONL Yon 09-16-2024 Abdomen/Pelvis W IV Cont ONLY [facility] Imaging Services [address] [place], [place] [address] Abdomen/Pelvis W IV Cont ONLY MR#: [id number] Acct: [id number] Name: ALINA LOPEZ Rep #: [id number] : 1960 F 63 From: Delmar Johnson MD PCP: Dr. Maria Teresa Parker MD Status: REG ER Study: Abdomen/Pelvis W IV Cont ONLY Date of Exam: Exam# [id number] Ordering Dr: Tre Roberson DO [id number] INDICATION: RLQ Pain Fever EXAMINATION: CT ABDOMEN AND PELVIS WITH CONTRAST - CT Abdomen And Pelvis W/ Contrast Injection TECHNIQUE: Helically acquired images were obtained of the abdomen and pelvis following IV contrast. A radiation dose optimization technique was used for this scan. IV Contrast dosage and agent: 100 cc [id number] Oral contrast: None. COMPARISON: 04/25/2004 ____ FINDINGS: LOWER CHEST: Lung bases are clear. No cardiomegaly or pericardial effusion. LIVER: No concerning focal mass. GALLBLADDER AND BILIARY TREE: No calcified gallstones. No gallbladder distension or wall edema. No intra- or extrahepatic biliary ductal dilation. PANCREAS: No focal cystic or solid mass. SPLEEN: Normal size without focal cystic or solid mass. ADRENAL GLANDS: No nodules. KIDNEYS AND URETERS: Right perinephric stranding with heterogenous right parenchymal enhancement pattern. No hydronephrosis. PERITONEUM: No ascites or free air. BOWEL: Normal appendix. Increased fluid contents distal small bowel without significant distention. No focal inflammatory change. LYMPH NODES: No enlarged mesenteric or retroperitoneal lymph nodes. VESSELS: Aorta is non-dilated. URINARY BLADDER: Nondistended. REPRODUCTIVE ORGANS: No pelvic masses. ABDOMINAL WALL: No discrete abdominal or pelvic wall hernia. BONES: No acute or aggressive abnormality. CT/Abdomen/Pelvis W IV Cont ONLY IMPRESSION: Findings suspicious for right pyelonephritis. Nonspecific small bowel changes which may indicate enteritis in the appropriate clinical setting. Electronically Signed: Delmar Johnson MD at 20:14 [facility] Reading Location ID and State: [facility] / [place] Tel , Service support , CC: Dr. Tre Roberson DO; Dr. Maria Teresa Parker MD Phone Engineer: Signed Normal [facility] Basic Metabolic Profile (BMP )on 09-16-2024 BUN/CRE 15.6 RATIO Normal - [facility] Comment on above: Performed By: #### L 100.0100, L500.2500, L500.3400 #### [facility] Laboratory [facility] [place], [address] CA,Total 9.4 mg/dL Normal 8.5-10.1 [facility] Comment on above: Performed By: #### L 100.0100, L500.2500, L500.3400 #### [facility] [address] [place], [address] Chloride [Moles/Vol] 102 mmol/L Normal 98-107 [facility] Comment on above: Performed By: #### L 100.0100, L500.2500, L500.3400 #### [facility] [address] [place], [address] CO2 [Moles/Vol] 28.0 mmol/L Normal 21.0-32.0 [facility] Comment on above: Performed By: #### L 100.0100, L500.2500, L500.3400 #### [facility] [address] [place], [address] Creatinine [Mass/Vol] 0.77 mg/dL Normal 0.55-1.02 [facility] Comment on above: Result Comment: The validity of the calculated GFR GFRAA in patients over 70 years has not been determined. Clinical correlation is essential. Performed By: #### L 100.0100, L500.2500, L500.3400 #### [facility] [address] [place], [address] ECRCL 68.18 ml/min Normal [facility] Comment on above: Performed By: #### L 100.0100, L500.2500, L500.3400 #### [facility] [address] [place], [address] EST GFR - AA 96 mL/min Normal >60 [facility] Comment on above: Result Comment: Afri can Malian GFR Calc Performed By: #### L 100.0100, L500.2500, L500.3400 #### [facility] [address] [place], [address] GAP 5 Normal 5-15 [facility] Comment on above: Performed By: #### L 100.0100, L500.2500, L500.3400 #### [facility] [address] [place], [address] GFR/1.73 sq M.predicted among non-blacks MDRD (S/P/Bld) [Vol rate/Area] 80 mL/min/{1.73_m2} Normal >60 [facility] Comment on above: Result Comment: Non- GFR Calc Performed By: #### L 100.0100, L500.2500, L500.3400 #### [facility] [address] [place], [address] Glucose [Mass/Vol] 110 mg/dL High 74-106 [facility] Comment on above: Result Comment: Fast ing Glucose result from 100 to 125 mg/dL suggests IMPAIRED HOMEOSTASIS per A.D.A. criteria. Performed By: #### L 100.0100, L500.2500, L500.3400 #### [facility] [address] [place], [address] Potassium [Moles/Vol] 3.4 mmol/L Low 3.5-5.1 [facility] Comment on above: Performed By: #### L 100.0100, L500.2500, L500.3400 #### [facility] [address] [place], [address] Sodium [Moles/Vol] 136 mmol/L Normal 136-145 [facility] Comment on above: Performed By: #### L 100.0100, L500.2500, L500.3400 #### [facility] [address] [place], [address] Urea nitrogen [Mass/Vol] 12 mg/dL Normal 7-18 [facility] Comment on above: Performed By: #### L 100.0100, L500.2500, L500.3400 #### [facility] [address] [place], [address] CBC W/Diff, Automatedon 12-10 07-2023 Absolute Lymph 1.53 X10 3/uL Normal 0.83-4.51 [facility] Comment on above: Performed By: #### L 100.0100, L500.2500, L500.3400 #### [facility] [address] [place], [address] Absolute Neut 9.9 X10 3/uL High 2.0-7.7 [facility] Comment on above: Performed By: #### L 100.0100, L500.2500, L500.3400 #### [facility] [address] [place], [address] Basophils/100 WBC (Bld) 0.2 % Normal 0-1 [facility] Comment on above: Performed By: #### L 100.0100, L500.2500, L500.3400 #### [facility] [address] [place], [address] Eosinophils/100 WBC (Bld) 0.5 % Normal 0-5 [facility] Comment on above: Performed By: #### L 100.0100, L500.2500, L500.3400 #### [facility] [address] [place], [address] Erythrocyte distribution width (RBC) [Ratio] 13.2 % Normal 11.6-14.6 [facility] Comment on above: Performed By: #### L 100.0100, L500.2500, L500.3400 #### [facility] [address] [place], [address] Hematocrit (Bld) [Volume fraction] 37.5 % Normal 37-47 [facility] Comment on above: Performed By: #### L 100.0100, L500.2500, L500.3400 #### [facility] [address] [place], [address] Hemoglobin (Bld) [Mass/Vol] 12.4 g/dL Normal 12.0-15.0 [facility] Comment on above: Performed By: #### L 100.0100, L500.2500, L500.3400 #### [facility] [address] [place], [address] IG% 0.300 Normal 0.0-0.9 [facility] Comment on above: Result Comment: IG% - Immature Granulocytes (promyelocytes, myelocytes and metamyelocytes) > 1% indicates that a LEFT SHIFT is Present. Performed By: #### L 100.0100, L500.2500, L500.3400 #### [facility] [address] [place], [address] Lymphocytes/100 WBC (Bld) 12.1 % Low 19-41 [facility] Comment on above: Performed By: #### L 100.0100, L500.2500, L500.3400 #### [facility] [address] [place], [address] MCH (RBC) [Entitic mass] 30.5 pg Normal 27.0-32.0 [facility] Comment on above: Performed By: #### L 100.0100, L500.2500, L500.3400 #### [facility] [address] [place], [address] MCHC (RBC) [Mass/Vol] 33.1 g/dL Normal 32-36 [facility] Comment on above: Performed By: #### L 100.0100, L500.2500, L500.3400 #### [facility] [address] [place], [address] MCV (RBC) [Entitic vol] 92.1 fL Normal 81-99 [facility] Comment on above: Performed By: #### L 100.0100, L500.2500, L500.3400 #### [facility] [address] [place], [address] Monocytes/100 WBC (Bld) 8.8 % Normal 0-10 [facility] Comment on above: Performed By: #### L 100.0100, L500.2500, L500.3400 #### [facility] [address] [place], [address] Neutrophils/100 WBC (Bld) 78.1 % High 47-70 [facility] Comment on above: Performed By: #### L 100.0100, L500.2500, L500.3400 #### [facility] [address] [place], [address] Nucleated RBC (Bld) [#/Vol] 0 10*3/uL Normal 0-5 [facility] Comment on above: Performed By: #### L 100.0100, L500.2500, L500.3400 #### [facility] [address] [place], [address] Platelet mean volume (Bld) [Entitic vol] 11.2 fL Normal 6.2-12.0 [facility] Comment on above: Performed By: #### L 100.0100, L500.2500, L500.3400 #### [facility] [address] [place], [address] Platelets (Bld) [#/Vol] 232 10*3/uL Normal 150-450 [facility] Comment on above: Performed By: #### L 100.0100, L500.2500, L500.3400 #### [facility] [address] [place], [address] RBC (Bld) [#/Vol] 4.07 10*6/uL Low 4.2-5.4 [facility] Comment on above: Performed By: #### L 100.0100, L500.2500, L500.3400 #### [facility] [address] [place], [address] RDW SD 45.1 fl High 35.1-43.9 [facility] Comment on above: Performed By: #### L 100.0100, L500.2500, L500.3400 #### [facility] [address] [place], [address] WBC (Bld) [#/Vol] 12.7 10*3/uL High 4.4-11.0 [facility] Comment on above: Performed By: #### L 100.0100, L500.2500, L500.3400 #### [facility] [address] [place], [address] Emergency Department Summary on 09-16-2024 Emergency Department Summary [facility] Medical Records Department [address] [place] [address] Emergency Department Summary 09/16/24 MR#: [id number] Acct: [id number] Name: ALINA LOPEZ Rep #: [id number] : 1960 63 From: Tre Roberson DO PCP: Dr. Maria Teresa Parker MD Status:DEP ER Location: ED HPI HPI - GI History of Present Illness Chief Complaint: Abd Pain Informant: patient Narrative Narrative: 63-year-old female presenting to the emergency room with fever (Tmax 100 degrees) and right lower quadrant abdominal pain. Patient states that she went to [place] in August flew home towards the middle of the month. She developed a low-grade fever and was seen at an urgent care and diagnosed with otitis media placed on antibiotics. She returned a week later with continued fever. Since then she states that she has persisted with the fever went to urgent care today and was concerned that perhaps she had a UTI but also was noting some right lower quadrant right lower pelvic pain. She notes it is worse with laying down and with coughing not so much with walking. She has had prior hysterectomy and removed for ectomy. She still has her appendix and gallbladder. [facility] Medical History (Updated 09/16/24 @ 20:[address] Ter Roberson, DO) Varicose veins of both lower extremities Depression Seborrheic keratosis Non-toxic multinodular goiter Abnormal EKG Incomplete uterovaginal prolapse Thyroid disorder Home Medications ???Medication ???Instructions ???Recorded ???Last Taken ???Type liothyronine 25 mcg tablet 50 mcg PO DAILY 11/25/18 08/03/19 06:30 History magnesium oxide 400 mg (241.3 mg 400 mg PO DAILY PRN PRN 05/17/19 Unknown History magnesium) tablet Constipation cholecalciferol (vit D3) 1,000 1 tab PO DAILY 07/18/20 Unknown History unit-vitamin K2 (MK4) 100 mcg tablet sulfamethoxazole 800 1 tab PO BID #19 tabs 09/16/24 Unknown Rx mg-trimethoprim 160 mg tablet (Bactrim DS) Allergy/AdvReac Type Severity Reaction Status Date / Time Penicillins Allergy Hives Verified 09/16/24 17:47 gluten AdvReac cramping Verified 09/16/24 17:47 and stomach upset levothyroxine sodium (From AdvReac skin Verified 09/16/24 19:57 Synthroid) crawling Family History Mother Arthritis Father Cancer esophageal Sister Hypertrophic cardiomyopathy Surgical History History of cervical polypectomy ( 08/2019) History of total vaginal hysterectomy (TVH) (02/11/19) History of bunionectomy of both great toes History of tonsillectomy History of endometrial ablation Social History (Updated 09/16/24 @ 18:54 by Chanel Reyes) household members: spouse housing: house Smoking Status: Never smoker alcohol intake: current alcohol intake frequency: a few times a month substance use type: does not use caffeine: Yes Type: carbonated beverages Number of servings: 1 what type of physical activity do you participate in: walking seatbelt use: always do you feel safe at home: Yes additional social history: [facility] ED Constitutional Constitutional ED: Reports fever(s); Denies chills or weight loss Eyes Eyes: Denies change in vision or diplopia ENT ENT ED: Denies ear pain, rhinorrhea or sore throat Cardiovascular Cardiovascular: Denies chest pain, orthopnea, palpitations or racing heartbeat Respiratory/Chest Respiratory/Chest: Denies cough, dyspnea or orthopnea Gastrointestinal Gastrointestinal: Reports abdominal pain; Denies diarrhea, nausea or vomiting Genitourinary Genitourinary ED: Reports urinary frequency; Denies dysuria or hematuria Musculoskeletal Musculoskeletal: Denies arthralgias or myalgias Integumentary Denies abscess or rash Neurologic Neurologic: Denies headache(s) or weakness Psychiatric Psychiatric: Denies anxiety, depression, suicidal ideation or suicidal thoughts Endocrine Endocrinology: Denies polydipsia, polyphagia or polyuria Allergic/Immunologic Allergic/Immunologic ED: Denies mouth swelling, tongue swelling or urticaria EXAM Physical Exam Const Vital Signs: 09/16/24 17:47 09/16/24 19:47 09/16/24 20:39 Temperature 100 F H 98.1 F Temperature Source Oral Pulse Rate 110 H 89 78 Respiratory Rate 18 16 16 Blood Pressure 147/69 H 120/63 120/74 Blood Pressure Mean 95 82 89 Pulse Ox 99 94 97 Oxygen Delivery Method Room Air Room Air Positive well nourished and well developed General Appearance ED: well developed HEENT Reports normocephalic, head/scalp atraumatic and moist mucous membranes Eyes PERRL and EOMs intact bilaterally Neck no lymphadenopathy, supple and no JVD Resp normal respiratory effort and clear to auscultation bilaterally Cardi (more content not included)... Normal [facility] Liver Profileon 09-16-2024 Albumin [Mass/Vol] 3.8 g/dL Normal 3.2-5.0 [facility] Comment on above: Performed By: #### L 100.0100, L500.2500, L500.3400 #### [facility] [address] [place], [address] ALK P 93 U/L Normal 45-117 [facility] Comment on above: Performed By: #### L 100.0100, L500.2500, L500.3400 #### [facility] [address] [place], [address] ALT [Catalytic activity/Vol] 25 U/L Normal 13-56 [facility] Comment on above: Performed By: #### L 100.0100, L500.2500, L500.3400 #### [facility] [address] [place], [address] AST [Catalytic activity/Vol] 21 U/L Normal 15-37 [facility] Comment on above: Performed By: #### L 100.0100, L500.2500, L500.3400 #### [facility] [address] [place], [address] Bilirubin [Mass/Vol] 0.70 mg/dL Normal 0.20-1.00 [facility] Comment on above: Result Comment: For patients on eltrombopag therapy, use of Dimension [place] TBIL is not recommended. Performed By: #### L 100.0100, L500.2500, L500.3400 #### [facility] [address] [place], [address] Bilirubin.direct [Mass/Vol] 0.23 mg/dL Normal 0.00-0.30 [facility] Comment on above: Performed By: #### L 100.0100, L500.2500, L500.3400 #### [facility] [address] [place], [address] Globulin (S) [Mass/Vol] 4.0 g/dL Normal 2.2-4.2 [facility] Comment on above: Performed By: #### L 100.0100, L500.2500, L500.3400 #### [facility] [address] [place], [address] T PROT 7.8 g/dL Normal 6.4-8.2 [facility] Comment on above: Performed By: #### L 100.0100, L500.2500, L500.3400 #### [facility] [address] [place], [address] Urinalysis, Completeon 09-16 BACTERIA 3+ /hpf Normal None Seen [facility] Comment on above: Order Comment: CLEAN CATCH Performed By: #### L 400.0001 #### [facility] [address] [place], [address] EPI,SQUAMOUS 0-5 SEEN Normal 5-10 [facility] Comment on above: Order Comment: CLEAN CATCH Performed By: #### L 400.0001 #### [facility] [address] [place], [place], [address] RBC 0-5 SEEN Normal 0-5 [facility] Comment on above: Order Comment: CLEAN CATCH Performed By: #### L 400.0001 #### [facility] [address] [place], [address] WBC 10-25 SEEN Normal 0-5 [facility] Comment on above: Order Comment: CLEAN CATCH Performed By: #### L 400.0001 #### [facility] [address] [place], [address] Mucus Ql (Urine sed) 0 SEEN Normal [facility] Comment on above: Order Comment: CLEAN CATCH Performed By: #### L 400.0001 #### [facility] [address] [place], [place], [address] Lab Report: PAP I-G HPV Hi R iskon 05-15-2017 GE use only - for [employer] import when terms are not otherwise specified Negative Invalid Interpretation Code Negative [facility] Work Phone: HPV HC,HGH RISK Negative Invalid Interpretation Code Negative [facility] Office Visit: est annualon 0 05-08-2017 Documentation of current medications (procedure) Done Invalid Interpretation Code [facility] Work Phone: Fall risk assessment No Invalid Interpretation Code [facility] Hemoglobin.gastroi ntestinal Ql (St) not done Invalid Interpretation Code [facility] Protein mass conc Done [facility] gt [facility] [place] Tobacco smoking status NHIS Never Invalid Interpretation Code [facility] Tobacco smoking status NHIS Never smoker [facility] Tobacco use CPHS Never smoker Invalid Interpretation Code [facility] Work Phone: Office Visiton 12-13-2014 Documentation of current medications (procedure) Done Invalid Interpretation Code [facility] Tobacco smoking status NHIS Never Invalid Interpretation Code [facility] Tobacco use CPHS Never smoker Invalid Interpretation Code [facility] Office Visit: est annualon 0 10-06-2009 MG Breast screening Normal Bilateral Invalid Interpretation Code [facility] Vital Signs Date Time Vital Sign Value Performing Clinician Estephania moore 05-08-2017 16:03-0400 BMI (Body Mass Index) 27 kg/m2 Khadijah Golden MD [facility] 05-08-2017 16:03-0400 Body Temperature 97.5 [degF] Khadijah Golden MD [facility] 05-08-2017 16:03-0400 BP Diastolic 68 mm[Hg] Khadijah Golden MD [facility] 05-08-2017 16:03-0400 BP Systolic 149 mm[Hg] Khadijah Golden MD [facility] 05-08-2017 16:03-0400 Height 170.18 cm Khadijah Golden MD [facility] 05-08-2017 16:03-0400 Pulse (Heart Rate) 76 /min Khadijah Golden MD [facility] 05-08-2017 16:03-0400 Respiratory Rate 16 /min Khadijah Golden MD [facility] 05-08-2017 16:03-0400 Weight 78.2 kg Khadijah Golden MD [facility] 11-24-2014 13:39-0500 BMI (Body Mass Index) 25.84 kg/m2 Khadijah Golden MD [facility] 11-24-2014 13:39-0500 BP Diastolic 80 mm[Hg] Khadijah Golden MD [facility] 11-24-2014 13:39-0500 BP Systolic 133 mm[Hg] Khadijah Golden MD [facility] 11-24-2014 13:39-0500 Height 170.18 cm Khadijah Golden MD [facility] 11-24-2014 13:39-0500 Weight 74.84 kg Khadijah Golden MD [facility] Encounters Encounter Date Encounter Type Care Provider Facility Start: 08-18-2025 ambulatory [facility] Facility: [facility] Start: 08-04-2025 Encounter for genera l adult medical examination without abnormal findings [facility] Start: 07-18-2025 End: 07-18-2025 ambulatory [facility] Facility:[facility] Start: 10-01-2024 End: 10-01-2024 ambulatory [facility] Facility:[facility] Start: 09-16-2024 End: 09-16-2024 Emergency department patient visit [facility] Facility:[facility] Procedures Date Procedure Procedure Detail Performing Clinician Start: 05-08-2017 End: 05-15-2017 Mammogram, screening Khadijah davison MD Work Phone: Start: 05-08-2017 Gynecologic examination Encounter for gynecological examination (general) (routine) with abnormal findings Khadijah Golden MD Start: 05-08-2017 End: 05-15-2017 Mammogram, screening Khadijah davison MD Work Phone: Start: 05-08-2017 Screening for malignant neoplasm of cervix Screening, cervical cancer Khadijah Golden MD Start: 05-08-2017 Screening mammography Screening mammogram for breast cancer Khadijah Golden MD Plan of Treatment Date Care Activity Detail Author Start: 05-08-2017 End: 05-08-2017 Appointment Appointment [facility] Start: 05-08-2017 End: 05-15-2017 Mammogram, screening Mammogram, Screening, both breasts [facility] Start: 05-08-2017 End: 05-15-2017 Mammogram, screening Mammogram, Screening, both breasts [facility] Start: 11-24-2014 End: 11-25-[address] [facility] [place] [facility] [place] Start: 11-24-2014 End: 11-25-2014 Nerve Conduction Nerve Conduction [facility] [place] [facility] [place] Start: 11-24-2014 End: 11-25-2014 EMG EMG [facility] Start: 11-24-2014 End: 11-25-2014 Nerve Conduction Nerve Conduction [facility] Payers Date Payer Category Payer Medicare [id number] 2024 Self-pay Unknown [id number] Unknown [id number] Unknown [id number] [id number] [id number] Unknown [id number] [id number] Summary Purpose Family History No Family History Records Found Advance Directives No Advanced Directives Records Found Additional Source Comments INFORMATION SOURCE (unrecogn ized section and content) DATE CREATED AUTHOR 08/07/2025 [facility] FOR RECORDS PERTAINING TO PATIENTS WHO ARE OR HAVE BEEN ENROLLED IN A CHEMICAL DEPENDENCY/SUBSTANCEABUSE PROGRAM, SOME INFORMATION MAY BE OMITTED. This clinical summary was aggregated from multiple sources. Caution should be exercised in using it in the provision of clinical care. This summary normalizes information from multiple sources, and as a consequence, information in this document may materially change the coding, format and clinical context of patient data. In addition, data may be omitted in some cases. CLINICAL DECISIONS SHOULD BE BASED ON THE PRIMARY CLINICAL RECORDS. [employer] provides no warranty or guarantee of the accuracy or completeness of information in this document.
== END | disposition home or self-care (01) ==
PROVIDERS: PCP Family Medicine; Referring Provider Family Medicine; Visit Provider Family Medicine
DX: M81.0 Age-related osteoporosis without current pathological fracture (principal)
CPT/HCPCS: 77080

== ENCOUNTER → 2025-08-26 | Outpatient (CLI) | payer MEDICARE, SELFPAY ==
[2025-08-26 18:20] LABS: Vitamin D,25 Hydroxy 45.8 ng/mL (30-100)
== END | disposition home or self-care (01) ==
LOC: BFHLAB 14:49
PROVIDERS: PCP Family Medicine; Visit Provider Family Medicine
DX: M81.0 Age-related osteoporosis without current pathological fracture (principal)
CPT/HCPCS: 36415; 82306